=== PATIENT | female | born 1950 | race Caucasian/White ===

== ENCOUNTER → 2016-07-29 | Outpatient (CLI) | payer MEDICARE, BC ==
--- NOTE | 2016-07-30 10:01 | MM ---
Reason for exam: screening (asymptomatic). Last mammogram was performed 1 year and 7 months ago. History: Patient is postmenopausal and history of other cancer. Excisional biopsy of the right breast. Took estrogen. Physical Findings: A clinical breast exam by your physician is recommended on an annual basis and results should be correlated with mammographic findings. MG 3D Screening Mammo W/Cad Bilateral CC and MLO view(s) were taken. Prior study comparison: January 10, 2015, bilateral MG screening mammo w CAD. January 09, 2014, bilateral MG screening mammo w CAD. There are scattered fibroglandular densities. Finding: There are typically benign calcifications in the left breast. No significant changes in finding since January 10, 2015 and January 09, 2014. ASSESSMENT: Benign, BI-RAD 2 RECOMMENDATION: Routine screening mammogram of both breasts in 1 year.
== END | disposition home or self-care (01) ==
LOC: RADMAMWWP 07:34
PROVIDERS: ATTEND Internal Medicine
DX: Z12.31 Encounter for screening mammogram for malignant neoplasm of breast (principal)
CPT/HCPCS: 77063; G0202

== ENCOUNTER → 2016-09-09 | Outpatient (CLI) | payer MEDICARE, BC ==
[2016-09-09 08:09] LABS: Anisocytosis Slight; Basophils # (A) 0.1 k/uL (0-0.2); Basophils % (A) 1 %; CH 30.7; CHCM 32.5; Eosinophils # (A) 0.1 k/uL (0-0.7); Eosinophils % (A) 1 %; HCT 40.8 % (34.0-46.0); HDW 2.86; HGB 13.2 gm/dL (11.4-16.0); Luc # (Auto) 0.18; Luc % (Auto) 3; Lymphocytes # (A) 1.9 k/uL (1.0-4.8); Lymphocytes % (A) 27 %; MCH 30.7 pg (25.0-35.0); MCHC 32.4 g/dL (31.0-37.0); MCV 94.8 fL (80.0-100.0); Mean Platelet Volume 7.2; Monocytes # (A) 0.5 k/uL (0-1.0); Monocytes % (A) 7 %; Neutrophils # (A) 4.2 k/uL (1.3-7.7); Neutrophils % (A) 61 %; RBC 4.31 m/uL (3.80-5.40); RDW 16.1 % (11.5-15.5); WBC 6.9 k/uL (3.8-10.6); WBC (Perox) 7.14
[2016-09-09 08:13] LABS: Appearance,Urine Clear (Clear); Bacteria,Urine Rare /hpf; Bilirubin,Urine Negative (Negative); Glucose,Urine (UA) Negative (Negative); Ketones,Urine Negative (Negative); Leukocyte Esterase,Urine Trace (Negative); Mucus,Urine Occasional /hpf; Nitrite,Urine Negative (Negative); PH, Urine 5.5 (5.0-8.0); Particle Count 3117; Protein,Urine Negative (Negative); RBC,Urine 1 /hpf (0-5); Specific Gravity,Urine 1.009 (1.001-1.035); Squamous Epithelial Cell,Urine 1 /hpf (0-4); UA Billing (MACRO vs. MICRO) MICRO; Urobilinogen,Urine <2.0 mg/dL (<2.0); WBC,Urine 6 /hpf (0-5)
[2016-09-09 08:14] LABS: ALT 20 U/L (9-52); AST 21 U/L (14-36); Alkaline Phosphatase 82 U/L (38-126); Anion Gap 11 mmol/L; Blood Urea Nitrogen 11 mg/dL (7-17); Calcium 10.4 mg/dL (8.4-10.2); Carbon Dioxide 26 mmol/L (22-30); Chloride 108 mmol/L (98-107); Cholesterol 230 mg/dL (<200); Glucose 81 mg/dL (74-99); HDL Cholesterol 66 mg/dL (40-60); Non-African American GFR(MDRD) >60 (>60 ml/min/1.73 sqM); Potassium 4.3 mmol/L (3.5-5.1); Sodium 145 mmol/L (137-145); Total Bilirubin 0.5 mg/dL (0.2-1.3); Total Protein 6.8 g/dL (6.3-8.2); Triglycerides 184 mg/dL (<150)
== END | disposition home or self-care (01) ==
LOC: LABWHC1 07:19
PROVIDERS: ATTEND Internal Medicine
DX: M81.0 Age-related osteoporosis without current pathological fracture (principal); I65.23 Occlusion and stenosis of bilateral carotid arteries; E78.5 Hyperlipidemia, unspecified
CPT/HCPCS: 36415; 80053; 80061; 81001; 82306; 84443; 85025

== ENCOUNTER → 2016-10-14 | Outpatient (CLI) | payer MEDICARE, BC ==
[2016-10-14 08:00] LABS: Anisocytosis Slight; Basophils # (A) 0.1 k/uL (0-0.2); Basophils % (A) 1 %; CH 31.8; CHCM 32.2; Eosinophils # (A) 0.1 k/uL (0-0.7); Eosinophils % (A) 2 %; HCT 41.7 % (34.0-46.0); HDW 2.75; HGB 13.2 gm/dL (11.4-16.0); Luc # (Auto) 0.15; Luc % (Auto) 2; Lymphocytes # (A) 2.1 k/uL (1.0-4.8); Lymphocytes % (A) 30 %; MCH 31.3 pg (25.0-35.0); MCHC 31.6 g/dL (31.0-37.0); Macrocytosis Slight; Monocytes # (A) 0.4 k/uL (0-1.0); Monocytes % (A) 5 %; Neutrophils # (A) 4.1 k/uL (1.3-7.7); Neutrophils % (A) 59 %; RBC 4.22 m/uL (3.80-5.40); RDW 16.2 % (11.5-15.5); WBC 6.9 k/uL (3.8-10.6); WBC (Perox) 6.98
== END | disposition home or self-care (01) ==
LOC: LABWHC1 07:24
PROVIDERS: ATTEND Internal Medicine
DX: R19.5 Other fecal abnormalities (principal)
CPT/HCPCS: 36415; 85025

== ENCOUNTER → 2017-08-12 | Outpatient (CLI) | payer MEDICARE ==
[2017-08-12 07:57] LABS: Basophils # (A) 0.1 k/uL (0-0.2); Basophils % (A) 1 %; Eosinophils # (A) 0.1 k/uL (0-0.7); Eosinophils % (A) 2 %; HCT 44.6 % (34.0-46.0); Lymphocytes # (A) 1.7 k/uL (1.0-4.8); Lymphocytes % (A) 30 %; MCH 31.6 pg (25.0-35.0); MCHC 31.4 g/dL (31.0-37.0); MCV 100.6 fL (80.0-100.0); Macrocytosis Slight; Mean Platelet Volume 6.9; Monocytes # (A) 0.2 k/uL (0-1.0); Monocytes % (A) 4 %; Neutrophils # (A) 3.5 k/uL (1.3-7.7); Neutrophils % (A) 62 %; Platelet Count 285 k/uL (150-450); RBC 4.44 m/uL (3.80-5.40); WBC 5.7 k/uL (3.8-10.6)
[2017-08-12 08:12] LABS: Appearance,Urine Clear (Clear); Bacteria,Urine Rare /hpf; Bilirubin,Urine Negative (Negative); Blood,Urine Negative (Negative); Color,Urine Yellow; Glucose,Urine (UA) Negative (Negative); Ketones,Urine Negative (Negative); Leukocyte Esterase,Urine Moderate (Negative); Mucus,Urine Occasional /hpf; Nitrite,Urine Negative (Negative); Protein,Urine Negative (Negative); RBC,Urine 1 /hpf (0-5); Specific Gravity,Urine 1.015 (1.001-1.035); Squamous Epithelial Cell,Urine <1 /hpf (0-4); Urobilinogen,Urine <2.0 mg/dL (<2.0); WBC,Urine 9 /hpf (0-5)
[2017-08-12 08:19] LABS: ALT 27 U/L (9-52); AST 24 U/L (14-36); Albumin 3.6 g/dL (3.5-5.0); Alkaline Phosphatase 110 U/L (38-126); Anion Gap 8 mmol/L; Blood Urea Nitrogen 16 mg/dL (7-17); Calcium 10.1 mg/dL (8.4-10.2); Carbon Dioxide 28 mmol/L (22-30); Chloride 107 mmol/L (98-107); Cholesterol 280 mg/dL (<200); Glucose 93 mg/dL (74-99); HDL Cholesterol 54 mg/dL (40-60); LDL Cholesterol,Calculated 188 mg/dL (0-99); Potassium 4.5 mmol/L (3.5-5.1); Sodium 143 mmol/L (137-145); Total Bilirubin 0.5 mg/dL (0.2-1.3); Total Protein 6.2 g/dL (6.3-8.2); Triglycerides 190 mg/dL (<150)
--- NOTE | 2017-08-16 09:12 | MM ---
Reason for exam: screening (asymptomatic). Last mammogram was performed 1 year ago. History: Patient is postmenopausal and history of other cancer. Excisional biopsy of the right breast. Took estrogen. Physical Findings: A clinical breast exam by your physician is recommended on an annual basis and results should be correlated with mammographic findings. MG 3D Screening Mammo W/Cad Bilateral CC and MLO view(s) were taken. Prior study comparison: July 29, 2016, bilateral MG 3d screening mammo w/cad. January 10, 2015, bilateral MG screening mammo w CAD. The breast tissue is heterogeneously dense. This may lower the sensitivity of mammography. No significant changes when compared with prior studies. ASSESSMENT: Benign, BI-RAD 2 RECOMMENDATION: Routine screening mammogram of both breasts in 1 year.
== END | disposition home or self-care (01) ==
LOC: RADMAMWWP 07:46
PROVIDERS: ATTEND Internal Medicine
DX: Z12.31 Encounter for screening mammogram for malignant neoplasm of breast (principal); I10 Essential (primary) hypertension; E55.9 Vitamin D deficiency, unspecified
CPT/HCPCS: 72040; 72100; 77063; 77067; 80053; 80061; 81001; 82306; 85025

== ENCOUNTER → 2017-08-12 | Outpatient (CLI) | payer MEDICARE ==
--- NOTE | 2017-08-12 09:05 | XR ---
EXAMINATION TYPE: XR cervical spine limited DATE OF EXAM: 08/12/2017 COMPARISON: NONE HISTORY: Neck pain TECHNIQUE: 3 views are submitted. FINDINGS: There are no compression deformities. The prevertebral soft tissue structures are within normal limi ts. Postsurgical change with vascular stent in the right neck. There is degenerative disc disease in volving the mid and lower cervical spine with multilevel facet arthropathy. Odontoid view is nondiagn ostic. There is poor visualization the anterior margin the odontoid. IMPRESSION: 1. Multilevel degenerative disc disease. 2. There is poor definition of the odontoid anteriorly with suspected fusion of C2 and C3 posteriorly . Recommend MRI or CT scan for further analysis.
--- NOTE | 2017-08-12 09:11 | XR ---
EXAM TYPE: LUMBAR SPINE X RAY SERIES COMPARISON: NONE HISTORY: Back pain TECHNIQUE: 4 views are submitted. FINDINGS: Alignment is anatomic. The pedicles are intact. The transverse processes are intact. There is no s pondylolysis or spondylolisthesis. Postsurgical change in the right upper quadrant. Calcifications i n the right upper quadrant could be related to gallbladder or liver. Hypertrophic changes at all levels with degenerative disc disease at all levels and most marked findi ngs at levels L3-S1 with multilevel facet arthropathy. Diffuse osteopenia noted. IMPRESSION: 1. Multilevel degenerative disc disease and facet arthropathy. Correlate with MRI as clinically warra nted.
== END | disposition home or self-care (01) ==
LOC: RADXRMAIN 06:56
PROVIDERS: ATTEND Chiropractor
DX: M50.320 Other cervical disc degeneration, mid-cervical region, unspecified level (principal); M51.37 Other intervertebral disc degeneration, lumbosacral region; M46.97 Unspecified inflammatory spondylopathy, lumbosacral region; I10 Essential (primary) hypertension; E55.9 Vitamin D deficiency, unspecified; Z98.890 Other specified postprocedural states
CPT/HCPCS: 72040; 72100

== ENCOUNTER → 2017-11-22 | Outpatient (CLI) | payer MEDICARE ==
--- NOTE | 2017-11-22 21:29 | MR ---
EXAMINATION TYPE: MR cervical spine wo con DATE OF EXAM: 11/22/2017 COMPARISON: Plain film 08/12/2017 HISTORY: Neck pain TECHNIQUE: Multiplanar, multisequence images of the cervical spine were acquired. There is multilevel lateral extension of endplate disc complex causing foraminal stenosis. Multilevel extension endplate disc complex is present causing minimal anterior mass effect on the thecal sac. N o significant spinal stenosis. Cervical segments are intact. There is normal alignment. Cervical spinal cord is of normal signal. Craniovertebral junction relationships are within normal limits. There is multilevel spondylosis wi th endplate discogenic marrow signal change, loss of disc height signal at the intervertebral levels compatible with disc desiccation and degenerative disc disease. Segmentation anomaly present at C2-3. IMPRESSION: Degenerative disc disease, congenital anomaly, multilevel foraminal encroachment. Correlate with plai n film prior to any intervention.
== END | disposition home or self-care (01) ==
LOC: RADMRIMAIN 05:57
PROVIDERS: ATTEND Orthopaedic Surgery Hand Surgery
DX: M50.30 Other cervical disc degeneration, unspecified cervical region (principal); Q76.49 Other congenital malformations of spine, not associated with scoliosis; M19.031 Primary osteoarthritis, right wrist
CPT/HCPCS: 72141

== ENCOUNTER → 2018-02-28 | Outpatient (CLI) | payer MEDICARE ==
--- NOTE | 2018-02-28 12:50 | CT ---
EXAMINATION TYPE: CT chest wo con DATE OF EXAM: 02/28/2018 COMPARISON: None HISTORY: Cough, COPD, ILD, Cancer. CT DLP: 217 mGycm, Automated exposure control for dose reduction was used. CONTRAST: None TECHNIQUE: Axial images were obtained at 1 mm thick sections at 10 mm intervals. This will limit po rtions of the examination which may not be visualized within the [id number]. Images were obtained in the prone and supine views. FINDINGS: There is limited evaluation of the thyroid. There is a small amount of atelectasis within the right middle lobe and lingula position right middle lobe and lingular infiltrates. Persistent on the supine views and somewhat more spiculated. Standard CT chest with contrast is recommended for add itional evaluation. Neoplasm is not excluded. Atelectasis could be considered. Some pneumonitis changes within the posterior left lung base stable between prone and supine views. F ollow-up is recommended. No enlarged mediastinal or hilar adenopathy is evident. There is some shotty mediastinal lymph node s. The ascending aorta diameter at the level of the main pulmonary artery is 3.1 cm. The main pulmon ruperto artery diameter at the bifurcation is 2.5 cm. Coronary artery calcification is present. Limited CT sections are obtained through the upper abdomen. Abdomen is essentially unremarkable. IMPRESSIONS: 1. Infiltrates within the right middle lobe and lingula which change but do not resolve between prone and supine views. Closer evaluation contrast CT is recommended. 2. Persistent area of pneumonitis within the left lower lobe. Follow-up to clearing is recommended.
== END | disposition home or self-care (01) ==
LOC: RADCTMAIN 07:51
PROVIDERS: ATTEND Internal Medicine
DX: J18.9 Pneumonia, unspecified organism (principal); R91.8 Other nonspecific abnormal finding of lung field; Z88.0 Allergy status to penicillin; Z88.2 Allergy status to sulfonamides; Z91.09 Other allergy status, other than to drugs and biological substances
CPT/HCPCS: 71250

== ENCOUNTER → 2018-06-05 | Outpatient (CLI) | payer MEDICARE ==
--- NOTE | 2018-06-05 18:04 | XR ---
EXAMINATION TYPE: XR ribs RT DATE OF EXAM: 06/05/2018 COMPARISON: NONE HISTORY: Right-sided rib pain after coughing TECHNIQUE: 4 views FINDINGS: There is no evidence of a rib fracture. I see no pleural effusion or pneumothorax. Right flaquito ng is clear of consolidation. IMPRESSION: Negative right rib exam.
== END | disposition home or self-care (01) ==
LOC: RADXRMAIN 16:33
PROVIDERS: ATTEND Internal Medicine
DX: R07.81 Pleurodynia (principal)

== ENCOUNTER → 2018-07-21 | Outpatient (CLI) | payer MEDICARE ==
--- NOTE | 2018-07-22 14:36 | ECHOF ---
Referral Reason:J91.8Bilateraleffusion,I50.9 CHF,R06.01 orthopenia MEASUREMENTS -------- HEIGHT: 162.6 cm WEIGHT: 82.1 kg BP: IVSd: 1.3 cm (0.6 - 1.1) LVIDd: 3.7 cm (3.9 - 5.3) LVPWd: 1.3 cm (0.6 - 1.1) IVSs: 1.4 cm LVIDs: 3.5 cm LVPWs: 1.4 cm LA Diam: 4.2 cm (2.7 - 3.8) LAESV Index (A-L): 25.39 ml/m MV EXCURSION: 14.013 mm (> 18.000) MV EF SLOPE: 62 mm/s (70 - 150) EPSS: 1.0 cm MV E Filemon: 1.09 m/s MV DecT: 237 ms MV A Filemon: 1.24 m/s MV E/A Ratio: 0.88 RAP: 5.00 mmHg RVSP: 17.61 mmHg FINDINGS -------- Sinus rhythm. This was a technically adequate study. The left ventricular size is normal. There is mild concentric left ventricular hypertrophy. Overa ll left ventricular systolic function is normal with, an EF between 55 - 60 %. The right ventricle is normal in size. There is mild aortic valve sclerosis. There is no evidence of aortic regurgitation. Moderate mitral annular calcification present. Mild mitral regurgitation is present. The peak an d mean MV gradients are 12.14mmHg 4.15mmHg as measured by doppler. Possible Vegetation on MV Leafle ts,Though it seems to be cosistent with thckened and calcified mitral annulus ans chordae.Clinical co rrelation suggested. Mild tricuspid regurgitation present. There is no evidence of pulmonary hypertension. The right v entricular systolic pressure, as measured by Doppler, is 17.61mmHg. There is no pulmonic regurgitation present. The aortic root size is normal. There is no pericardial effusion. CONCLUSIONS -------- 1. The left ventricular size is normal. 2. There is mild concentric left ventricular hypertrophy. 3. Overall left ventricular systolic function is normal with, an EF between 55 - 60 %. 4. The right ventricle is normal in size. 5. There is mild aortic valve sclerosis. 6. Mild mitral regurgitation is present. 7. The peak and mean MV gradients are 12.14mmHg 4.15mmHg as measured by doppler. 8. Possible Vegetation on MV Leaflets,Though it seems to be cosistent with thckened and calcified daisy ral annulus ans chordae.Clinical correlation suggested. 9. Mild tricuspid regurgitation present. 10. There is no evidence of pulmonary hypertension. 11. The right ventricular systolic pressure, as measured by Doppler, is 17.61mmHg. 12. There is no pulmonic regurgitation present. 13. The aortic root size is normal. 14. There is no pericardial effusion. GARMENT PARTS CUTTER MACHINE: Narda Rose RDCS
== END | disposition home or self-care (01) ==
LOC: RADECHMAIN 15:32
PROVIDERS: ATTEND Internal Medicine
DX: I08.3 Combined rheumatic disorders of mitral, aortic and tricuspid valves (principal); Z88.0 Allergy status to penicillin; Z88.2 Allergy status to sulfonamides; Z91.048 Other nonmedicinal substance allergy status
CPT/HCPCS: 93306

== ENCOUNTER → 2018-08-14 | Outpatient (CLI) | payer MEDICARE ==
[2018-08-14 22:01] LABS: Albumin/Globulin Ratio 1.82 (1.60-3.17); Anion Gap 7.2 mmol/L (4.00-12.00); Calcium 9.6 mg/dL (8.7-10.3); Carbon Dioxide 26.8 mmol/L (21.6-31.8); Globulin 2.2 g/dL (1.6-3.3); Potassium 4.3 mmol/L (3.5-5.5); Total Bilirubin 0.2 mg/dL (0.2-1.2); Total Protein 6.2 g/dL (6.2-8.2)
== END | disposition home or self-care (01) ==
LOC: LABWHC1 14:17
PROVIDERS: ATTEND Internal Medicine
DX: I50.30 Unspecified diastolic (congestive) heart failure (principal)
CPT/HCPCS: 36415; 80053; 83880

== ENCOUNTER → 2018-08-21 | Outpatient (CLI) | payer MEDICARE ==
--- NOTE | 2018-08-22 13:18 | MM ---
Reason for exam: screening (asymptomatic). Last mammogram was performed 1 year ago. History: Patient is postmenopausal and history of other cancer. Excisional biopsy of the right breast. Took estrogen. Physical Findings: A clinical breast exam by your physician is recommended on an annual basis and results should be correlated with mammographic findings. MG 3D Screening Mammo W/Cad Bilateral CC and MLO view(s) were taken. Prior study comparison: August 12, 2017, bilateral MG 3d screening mammo w/cad. July 29, 2016, bilateral MG 3d screening mammo w/cad. The breast tissue is heterogeneously dense. This may lower the sensitivity of mammography. Benign appearing bilateral calcifications. No suspicious abnormality. No significant changes when compared with prior studies. ASSESSMENT: Benign, BI-RAD 2 RECOMMENDATION: Routine screening mammogram of both breasts in 1 year.
== END ==
LOC: RADMAMWWP 06:51
PROVIDERS: ATTEND Internal Medicine
DX: Z12.31 Encounter for screening mammogram for malignant neoplasm of breast (principal)
CPT/HCPCS: 77063; 77067

== ENCOUNTER → 2018-11-13 | Outpatient (CLI) | payer MEDICARE ==
[2018-11-13 09:54] LABS: Potassium 4.3 mmol/L (3.5-5.1)
== END | disposition home or self-care (01) ==
LOC: LABPAT 08:12
PROVIDERS: ATTEND Internal Medicine Interventional Cardiology
DX: Z01.812 Encounter for preprocedural laboratory examination (principal); R06.02 Shortness of breath; R94.39 Abnormal result of other cardiovascular function study
CPT/HCPCS: 36415; 80051; 82565; 82947; 84520

== ENCOUNTER → 2018-11-13 | Outpatient (CLI) | payer MEDICARE ==
[2018-11-13 09:51] LABS: Basophils # (A) 0.1 k/uL (0-0.2); Basophils % (A) 1 %; Eosinophils # (A) 0.1 k/uL (0-0.7); Eosinophils % (A) 2 %; HCT 40.3 % (34.0-46.0); Lymphocytes % (A) 32 %; MCH 29.4 pg (25.0-35.0); MCHC 32.2 g/dL (31.0-37.0); MCV 91.4 fL (80.0-100.0); Mean Platelet Volume 7.2; Monocytes # (A) 0.4 k/uL (0-1.0); Monocytes % (A) 7 %; Neutrophils # (A) 3.5 k/uL (1.3-7.7); Neutrophils % (A) 56 %; Platelet Count 277 k/uL (150-450); RBC 4.41 m/uL (3.80-5.40); RDW 15.6 % (11.5-15.5); WBC 6.2 k/uL (3.8-10.6)
[2018-11-13 16:25] LABS: Albumin 4.1 g/dL (3.80-4.90); C Reactive Protein 0.9 mg/dL (0.0-0.8); Calcium 9.6 mg/dL (8.7-10.3)
== END | disposition home or self-care (01) ==
LOC: LABWHC1 08:16
PROVIDERS: ATTEND Internal Medicine Rheumatology
DX: M06.4 Inflammatory polyarthropathy (principal); Z79.899 Other long term (current) drug therapy
CPT/HCPCS: 36415; 82040; 82310; 84450; 84460; 85025; 85652; 86140; 86480

== ENCOUNTER 2018-11-23 06:18 | Day surgery (SDC) | payer MEDICARE ==
[2018-11-20 14:40] VITALS: BMI 30.9
[2018-11-23] MEDS ORDERED: ALPRAZolam 0.25 MG TAB PO PRN (06:42)
[2018-11-23] MEDS ORDERED: ALPRAZolam 0.5 MG TAB PO PRN (06:42)
[2018-11-23] MEDS ORDERED: SODIUM CHLORIDE 0.9% 1,000 ML in EMPTY BAG 1 BAG IV ONE (06:42)
[2018-11-23] MEDS ORDERED: NITROGLYCERIN SL TABS 0.4 MG TAB SUBLINGUAL PRN (06:42)
[2018-11-23] MEDS ORDERED: ASPIRIN 325 MG TAB PO STA (06:42)
[2018-11-23] MEDS ORDERED: ATORVASTATIN 80 MG TAB PO STA (06:42)
[2018-11-23] MEDS ORDERED: SODIUM CHLORIDE 0.9% 1,000 ML IV ONE (07:15)
[2018-11-23 07:17] VITALS: PULSE 82; TEMP 98.4
[2018-11-23] MEDS ORDERED: VERAPAMIL 2.5 MG/ML 2 ML AMP ONE (07:18)
[2018-11-23] MEDS ORDERED: HEPARIN SODIUM 1,000 UN/ML (10ML VL) ONE (07:18)
[2018-11-23] MEDS ORDERED: LIDOCAINE 1% INJ 10MG/ML (20 ML MDV) ONE (07:18)
[2018-11-23] MEDS ORDERED: MIDAZOLAM (PF) 2 MG/2 ML VIAL IVP ONE (07:59)
[2018-11-23] MEDS ORDERED: LIDOCAINE 1% INJ 10MG/ML (20 ML MDV) SQ ONE (08:03)
[2018-11-23] MEDS: VERAPAMIL SYRINGE (5 MG/10 ML) INTRAARTER ONE ×2 (08:04→08:15)
[2018-11-23] MEDS ORDERED: HEPARIN SODIUM 1,000 UN/ML (10ML VL) IV ONE (08:05)
[2018-11-23] MEDS ORDERED: MIDAZOLAM (PF) 2 MG/2 ML VIAL IV ONE (08:06)
[2018-11-23] MEDS ORDERED: IOPAMIDOL-370 100ML BTL INJ ONE (08:13)
[2018-11-23] MEDS ORDERED: RX INFO: IV CONTRAST WAS GIVEN 1 EACH MISC MISCELLANE PRN (08:22)
[2018-11-23] MEDS ORDERED: SODIUM CHLORIDE 0.9% 1,000 ML IV SCH (08:30)
--- NOTE | 2018-11-23 11:39 | CC ---
CARDIAC CATHETERIZATION REPORT DATE OF SERVICE: November 23, 2018 PERFORMING PHYSICIAN: Armand Narayan MD, hat cutter. PROCEDURE PERFORMED: 1. Selective right and left coronary angiogram. 2. Left heart catheterization. INDICATION: This is a 68-year-old female patient with history of carotid disease as well as hypertension and dyslipidemia who was experiencing shortness of breath with exertion. She underwent a myocardial perfusion imaging stress test and that revealed an inferior ischemia. Because of that, a heart catheterization was advised. APPROACH: Right radial artery. COMPLICATION: None. LEVEL OF SEDATION: Moderate with sedation length of 16 minutes. PROCEDURE DESCRIPTION: After obtaining an informed consent, the patient was brought to the cardiac slabber light. The right radial artery was cannulated using micropuncture technique and a micropuncture wire passed easily then I placed a 6-Czech sheath in the right radial artery and subsequently I gave the patient 2 mg of verapamil IA and 10,000 units of heparin IV. After that, I did selective right and left coronary angiogram using JR4 and JL3.5 catheters. Left heart catheterization was performed using the JR4 catheter which flipped into the LV then I did pullback across aortic valve. The procedure was completed without any complication. SELECTIVE CORONARY ANGIOGRAM: 1. The right coronary artery is a large caliber vessel. It is a dominant vessel. right has a lesion appeared to be in the range of 90% to 95%. 2. The left main is angiographically normal. It bifurcates into left circumflex and left anterior descending artery. 3. The left circumflex is a large caliber vessel. It is a nondominant vessel. The proximal circumflex has mild disease only and gives rise into a large OM branch which bifurcates into 2 separate branches. Both appeared to be angiographically normal and the circumflex continued after that as a small-caliber vessel in the AV groove. 4. The LAD: The proximal LAD has mild disease only. The mid LAD appeared to be angiographically normal and the LAD distally appeared to be angiographically normal. The LAD gives rise into one diagonal branch in the midportion which is a small caliber vessel. HEMODYNAMICS: The left ventricular end-diastolic pressure was about 12 mmHg without gradient across the aortic valve. CONCLUSION: 1. Critical disease involving the ostial right coronary artery. 2. Mild nonobstructive disease involving the left coronary system. 3. Normal left ventricular end-diastolic pressure. POSTPROCEDURE MANAGEMENT: 1. Giving the patient history of NICKEL allergy, I am going to treat the patient medically at this point. 2. I will follow up with the patient in the office in a week. MMPAM / CHEN: [id number] /
--- NOTE | 2018-11-23 11:54 | LTR ---
DATE OF SERVICE: November 23, [address] Brown: Ms. Winsome Fonseca underwent today a heart catheterization and that revealed critical disease involving the ostial of the right coronary artery. As you know, she does have a NICKEL ALLERGY. Because of that, I am going to treat the patient medically at this point. I want to thank you for allowing us to participate in her care and please do not hesitate to call if you have any questions or concerns. Sincerely, GENOVEVA / CHEN: [id number] /
[2018-11-23 12:13] VITALS: RESP 20
[2018-11-23 13:12] VITALS: BP 128/62
== END 2018-11-23 13:00 | disposition home or self-care (01) ==
LOC: CATHCVL 06:18
PROVIDERS: ATTEND Internal Medicine Interventional Cardiology
DX: I25.110 Atherosclerotic heart disease of native coronary artery with unstable angina pectoris (principal); I10 Essential (primary) hypertension; Z72.0 Tobacco use; I65.23 Occlusion and stenosis of bilateral carotid arteries; E78.5 Hyperlipidemia, unspecified; J44.9 Chronic obstructive pulmonary disease, unspecified; M06.9 Rheumatoid arthritis, unspecified; Z79.82 Long term (current) use of aspirin; Z79.52 Long term (current) use of systemic steroids; Z79.899 Other long term (current) drug therapy; Z88.0 Allergy status to penicillin; Z88.2 Allergy status to sulfonamides
CPT/HCPCS: 93458; J2001; J1644; Q9967; J2250

== ENCOUNTER 2018-12-04 09:09 | Day surgery (SDC) | payer MEDICARE ==
[~2018-12-04 09:09] MED LIST: ALPRAZolam 0.25 MG TAB PO PRN; ALPRAZolam 0.5 MG TAB PO PRN; ASPIRIN 325 MG TAB PO STA; ATORVASTATIN 80 MG TAB PO STA; NITROGLYCERIN SL TABS 0.4 MG TAB SUBLINGUAL PRN; SODIUM CHLORIDE 0.9% 1,000 ML in EMPTY BAG 1 BAG IV ONE
[2018-12-04 10:15] LABS: Basophils % (A) 0 %; Eosinophils # (A) 0.1 k/uL (0-0.7); Eosinophils % (A) 1 %; HCT 42.6 % (34.0-46.0); HGB 13.6 gm/dL (11.4-16.0); Lymphocytes # (A) 1.6 k/uL (1.0-4.8); Lymphocytes % (A) 17 %; MCH 29.1 pg (25.0-35.0); MCV 90.9 fL (80.0-100.0); Mean Platelet Volume 7.1; Monocytes # (A) 0.5 k/uL (0-1.0); Monocytes % (A) 6 %; Neutrophils # (A) 6.8 k/uL (1.3-7.7); Neutrophils % (A) 75 %; Platelet Count 231 k/uL (150-450); RBC 4.68 m/uL (3.80-5.40); RDW 15.5 % (11.5-15.5); WBC 9.2 k/uL (3.8-10.6)
[2018-12-04 10:27] LABS: Calcium 10.2 mg/dL (8.4-10.2); Potassium 4.3 mmol/L (3.5-5.1)
[2018-12-04] MEDS ORDERED: LIDOCAINE 1% INJ 10MG/ML (20 ML MDV) ONE ×2 (11:00→12:42)
[2018-12-04] MEDS ORDERED: HYDROmorphone 1 MG/ML 1 ML SYRINGE ONE (13:13)
[2018-12-04] MEDS ORDERED: MIDAZOLAM (PF) 2 MG/2 ML VIAL IV ONE ×2 (13:15→13:21)
[2018-12-04] MEDS ORDERED: LIDOCAINE 1% INJ 10MG/ML (10 ML MDV) SQ ONE (13:16)
[2018-12-04] MEDS ORDERED: BIVALIRUDIN BOLUS 250 MG/50 ML IV ONE (13:18)
[2018-12-04] MEDS ORDERED: ENALAPRILAT 1.25 MG/ML 1 ML VIAL IV ONE (13:19)
[2018-12-04] MEDS ORDERED: BIVALIRUDIN 250 MG in SODIUM CHLORIDE 0.9% 50 ML IV ONE (13:20)
[2018-12-04] MEDS ORDERED: HYDROmorphone 1 MG/ML 1 ML SYRINGE IVP ONE (13:20)
[2018-12-04] MEDS ORDERED: NITROGLYCERIN 1000MCG/10ML SYRINGE INTRACORON ONE (13:21)
[2018-12-04] MEDS ORDERED: hydrALAZINE HCL 20 MG/ML 1 ML VIAL ONE (13:36)
[2018-12-04] MEDS ORDERED: ENALAPRILAT 1.25 MG/ML 1 ML VIAL ONE (13:36)
[2018-12-04] MEDS ORDERED: hydrALAZINE HCL 20 MG/ML 1 ML VIAL IV ONE (13:39)
[2018-12-04] MEDS ORDERED: CLOPIDOGREL 75 MG TAB ONE (13:49)
[2018-12-04] MEDS ORDERED: IOPAMIDOL-370 125ML BTL INJ ONE (13:55)
[2018-12-04] MEDS ORDERED: CLOPIDOGREL 75 MG TAB PO ONE (13:56)
[2018-12-04] MEDS ORDERED: RX INFO: IV CONTRAST WAS GIVEN 1 EACH MISC MISCELLANE PRN (15:47)
[2018-12-04] MEDS ORDERED: MAG HYDROX/AL HYDROX/SIMETH 30 ML CUP PO PRN (15:47)
[2018-12-04] MEDS ORDERED: ATROPINE SULFATE 0.1 MG/ML 10ML SYRINGE IV PRN (15:47)
--- NOTE | 2018-12-04 19:03 | PTCA ---
PERCUTANEOUSTRANS CORORONARY ANGIOGRAPHY DATE OF SERVICE: December 04, 2018 PERFORMING PHYSICIAN: Armand Narayan MD, membership director. PROCEDURE PERFORMED: 1. An atherectomy of the right coronary artery. 2. Successful stenting of the RCA using 3.5 x 15 mm Xience ARTIS, which was postdilated using 3.75 mm NC balloon with an excellent angiographic results. 3. Placement of temporary pacemaker. INDICATIONS: This is a pleasant 68-year-old female patient who was experiencing shortness of breath with exertion and underwent a heart catheterization and that revealed critical disease involving the ostial RCA. The ostial RCA was calcified. She was brought today to undergo a PCI of the RCA. APPROACH: Right common femoral artery. COMPLICATION: None. LEVEL OF SEDATION: Moderate. Sedation length of 34 minutes. PROCEDURE DESCRIPTION: After obtaining an informed consent, the patient was brought to cardiac labor conciliator. The right common femoral vein and right common femoral artery were cannulated using micropuncture technique and a micropuncture wire passed. Wire passed easily. Then I placed 2 6-Syriac in the vein and the artery as well. After that I placed a transvenous temporary pacemaker under fluoroscopy guidance. After that, I did start anticoagulation with Angiomax. The RCA was engaged using JL4 guide with a side hole. After that, I did wire using a Whisper wire and then I did change my Whisper into a ViperWire preparing for atherectomy. I did atherectomy under low speed only. After that I did balloon angioplasty using 3.5 mm balloon before I deployed a 3.5 x 15 mm Xience ARTIS, which was inflated under 18 atmospheres for 20 seconds. I post dilated using 375 mm NC balloon. The final angiogram showed excellent results and the procedure was completed without any complication. POSTPROCEDURE MANAGEMENT: 1. Dual anti-platelet therapy. 2. Risk factor modifications. 3. Follow up with the patient. MMODL / IJN: [id number] /
[2018-12-04 19:46] VITALS: RESP 18; BMI 30.8
[2018-12-04] MEDS: SODIUM CHLORIDE 0.9% 1,000 ML IV SCH (20:01)
[2018-12-04] MEDS: HYDROXYCHLOROQUINE SULFATE 200 MG TAB PO SCH (21:02)
[2018-12-04] MEDS: METOPROLOL TARTRATE 25 MG TAB PO SCH (21:02)
[2018-12-05] MEDS: SODIUM CHLORIDE 0.9% 1,000 ML IV SCH (04:01)
[2018-12-05 06:43] LABS: Basophils # (A) 0.1 k/uL (0-0.2); Basophils % (A) 1 %; Eosinophils % (A) 1 %; HCT 39.3 % (34.0-46.0); HGB 12.5 gm/dL (11.4-16.0); Lymphocytes # (A) 1.7 k/uL (1.0-4.8); Lymphocytes % (A) 26 %; MCH 29.1 pg (25.0-35.0); MCHC 31.8 g/dL (31.0-37.0); MCV 91.4 fL (80.0-100.0); Mean Platelet Volume 7.3; Monocytes # (A) 0.5 k/uL (0-1.0); Monocytes % (A) 8 %; Neutrophils # (A) 4.1 k/uL (1.3-7.7); Neutrophils % (A) 63 %; Platelet Count 200 k/uL (150-450); RDW 15.6 % (11.5-15.5); WBC 6.5 k/uL (3.8-10.6)
[2018-12-05 06:58] LABS: Calcium 9.7 mg/dL (8.4-10.2); Potassium 4.1 mmol/L (3.5-5.1)
[2018-12-05] MEDS: HYDROXYCHLOROQUINE SULFATE 200 MG TAB PO SCH (07:50)
[2018-12-05] MEDS: METOPROLOL TARTRATE 25 MG TAB PO SCH (07:51)
[2018-12-05] MEDS: ATORVASTATIN 10 MG TAB PO SCH ×2 (07:51→07:54)
[2018-12-05] MEDS ORDERED: CLOPIDOGREL 75 MG TAB PO SCH (09:00)
[2018-12-05] MEDS ORDERED: LOSARTAN 25 MG TAB PO SCH (09:00)
[2018-12-05] MEDS ORDERED: FUROSEMIDE 20 MG TAB PO SCH (09:00)
[2018-12-05] MEDS ORDERED: POTASSIUM CHLORIDE ER 20 MEQ TAB.ER PO SCH (09:00)
[2018-12-05] MEDS ORDERED: predniSONE 2.5 MG TAB PO SCH (09:00)
[2018-12-05] MEDS ORDERED: FOLIC ACID 1 MG TAB PO SCH (09:00)
[2018-12-05] MEDS ORDERED: ASPIRIN 325 MG TAB PO SCH (09:00)
[2018-12-05] MEDS ORDERED: CHOLECALCIFEROL 1,000 UNIT TAB PO SCH (09:00)
[2018-12-05 09:28] VITALS: BP 115/54; PULSE 83; TEMP 98
--- NOTE | 2018-12-05 10:50 | DS ---
DISCHARGE SUMMARY DATE OF ADMISSION: 12/04/2018 DATE OF DISCHARGE: 12/05/2018 BRIEF HISTORY: This is a pleasant 68-year-old female patient who was admitted to the hospital yesterday and underwent successful atherectomy along with balloon angioplasty and stenting of the ostial right coronary artery with a right groin approach. On follow up with her today, she seems to be asymptomatic and doing well. The right groin is soft and nontender and without any bruises. The patient is going to be discharged home on dual anti-platelet therapy and I will follow up with the patient next week in the office. GENOVEVA / CAREN: [id number] /
[2018-12-10] MEDS ORDERED: METHOTREXATE SODIUM 2.5 MG TAB PO SCH (09:00)
== END 2018-12-05 10:01 | disposition home or self-care (01) ==
LOC: CATHCVL 09:09 → 3SCARD 14:39 → CATHCVL 12-05 10:01
PROVIDERS: ATTEND Internal Medicine Interventional Cardiology
DX: I25.10 Atherosclerotic heart disease of native coronary artery without angina pectoris (principal); I25.84 Coronary atherosclerosis due to calcified coronary lesion; I10 Essential (primary) hypertension; E78.5 Hyperlipidemia, unspecified; Z72.0 Tobacco use; I65.23 Occlusion and stenosis of bilateral carotid arteries; J44.9 Chronic obstructive pulmonary disease, unspecified; M06.9 Rheumatoid arthritis, unspecified; Z79.82 Long term (current) use of aspirin; Z79.899 Other long term (current) drug therapy; Z88.0 Allergy status to penicillin; Z88.2 Allergy status to sulfonamides
CPT/HCPCS: 94760; 80048 ×2; 85025 ×2; C9602; C1769 ×6; C1887; C1725 ×2; C1894; C1714; C1874; J0360; J1170; J0583; J2001; J7512; Q9967; J2250

== ENCOUNTER → 2019-02-03 | Outpatient (CLI) | payer MEDICARE ==
[2019-02-03 08:56] LABS: Anisocytosis Slight; Basophils % (A) 1 %; Eosinophils # (A) 0.1 k/uL (0-0.7); Eosinophils % (A) 2 %; HCT 39.8 % (34.0-46.0); HGB 12.8 gm/dL (11.4-16.0); Lymphocytes # (A) 1.9 k/uL (1.0-4.8); Lymphocytes % (A) 35 %; MCH 31.2 pg (25.0-35.0); MCHC 32.2 g/dL (31.0-37.0); Macrocytosis Slight; Mean Platelet Volume 7.3; Monocytes # (A) 0.4 k/uL (0-1.0); Monocytes % (A) 7 %; Neutrophils % (A) 53 %; Platelet Count 230 k/uL (150-450); RDW 18.1 % (11.5-15.5); WBC 5.6 k/uL (3.8-10.6)
[2019-02-03 08:57] LABS: MCV 97.1 fL (80.0-100.0)
[2019-02-03 10:45] LABS: Erythrocyte Sedimentation Rate 14 mm/hr (0-20)
[2019-02-03 17:00] LABS: African American GFR (CKD) 75.1 (60.0-200.0); Albumin 3.9 g/dL (3.80-4.90); Anion Gap 7.9 mmol/L (4.00-12.00); C Reactive Protein 0.6 mg/dL (0.0-0.8); Calcium 9.5 mg/dL (8.7-10.3); Carbon Dioxide 27.1 mmol/L (21.6-31.8); Potassium 4.2 mmol/L (3.5-5.5)
== END ==
LOC: LABWHC1 08:08
PROVIDERS: ATTEND Internal Medicine Rheumatology
DX: M06.4 Inflammatory polyarthropathy (principal); Z79.899 Other long term (current) drug therapy
CPT/HCPCS: 36415; 80051; 82040; 82310; 82565; 84450; 84460; 84520; 85025; 85652; 86140

== ENCOUNTER → 2019-04-05 | Outpatient (CLI) | payer MEDICARE ==
[2019-04-05 08:56] LABS: Basophils # (A) 0.1 k/uL (0-0.2); Basophils % (A) 1 %; Eosinophils # (A) 0.1 k/uL (0-0.7); Eosinophils % (A) 2 %; HCT 41.9 % (34.0-46.0); HGB 13.7 gm/dL (11.4-16.0); Lymphocytes # (A) 2.3 k/uL (1.0-4.8); Lymphocytes % (A) 34 %; MCH 32.4 pg (25.0-35.0); MCHC 32.7 g/dL (31.0-37.0); Macrocytosis Slight; Mean Platelet Volume 6.7; Monocytes # (A) 0.3 k/uL (0-1.0); Monocytes % (A) 5 %; Neutrophils # (A) 3.6 k/uL (1.3-7.7); Neutrophils % (A) 56 %; Platelet Count 291 k/uL (150-450); RBC 4.23 m/uL (3.80-5.40); RDW 15.6 % (11.5-15.5); WBC 6.5 k/uL (3.8-10.6)
[2019-04-05 10:22] LABS: Erythrocyte Sedimentation Rate 8 mm/hr (0-20)
[2019-04-05 21:10] LABS: ALT 16 U/L (8-44); AST 17 U/L (13-35); African American GFR (CKD) 66.1 (60.0-200.0); C Reactive Protein <0.4 mg/dL (0.0-0.8); Calcium 9.8 mg/dL (8.7-10.3); Carbon Dioxide 24.7 mmol/L (21.6-31.8); Chloride 105 mmol/L (96-109); Potassium 4.8 mmol/L (3.5-5.5); Sodium 140 mmol/L (135-145)
== END | disposition home or self-care (01) ==
LOC: LABWHC1 07:54
PROVIDERS: ATTEND Internal Medicine Rheumatology
DX: M25.50 Pain in unspecified joint (principal); M06.4 Inflammatory polyarthropathy; Z79.899 Other long term (current) drug therapy
CPT/HCPCS: 36415; 80051; 82040; 82310; 82565; 84450; 84460; 84520; 85025; 85652; 86140

== ENCOUNTER → 2019-07-13 | Outpatient (CLI) | payer MEDICARE ==
[2019-07-13 08:37] LABS: Basophils % (A) 1 %; Eosinophils # (A) 0.1 k/uL (0-0.7); Eosinophils % (A) 2 %; HCT 40.2 % (34.0-46.0); HGB 13.1 gm/dL (11.4-16.0); Lymphocytes % (A) 34 %; MCH 31.6 pg (25.0-35.0); MCHC 32.5 g/dL (31.0-37.0); MCV 97.2 fL (80.0-100.0); Mean Platelet Volume 7.7; Monocytes # (A) 0.3 k/uL (0-1.0); Monocytes % (A) 6 %; Neutrophils # (A) 3.1 k/uL (1.3-7.7); Neutrophils % (A) 55 %; Platelet Count 267 k/uL (150-450); RBC 4.14 m/uL (3.80-5.40); WBC 5.7 k/uL (3.8-10.6)
[2019-07-13 11:50] LABS: Erythrocyte Sedimentation Rate 25 mm/hr (0-20)
[2019-07-13 18:30] LABS: Calcium 9.9 mg/dL (8.7-10.3)
[2019-07-13 18:31] LABS: African American GFR (CKD) 66.1 (60.0-200.0); Albumin 4.2 g/dL (3.80-4.90); C Reactive Protein 2.5 mg/dL (0.0-0.8); Potassium 4.4 mmol/L (3.5-5.5)
== END | disposition home or self-care (01) ==
LOC: LABWHC1 07:38
PROVIDERS: ATTEND Internal Medicine Rheumatology
DX: M25.50 Pain in unspecified joint (principal)
CPT/HCPCS: 36415; 80051; 82040; 82310; 82565; 84450; 84460; 84520; 85025; 85652; 86140

== ENCOUNTER → 2019-12-21 | Outpatient (CLI) | payer MEDICARE ==
[2019-12-21 11:34] LABS: Appearance,Urine Clear (Clear); Bilirubin,Urine Negative (Negative); Blood,Urine Negative (Negative); Color,Urine Yellow; Glucose,Urine (UA) Negative (Negative); Ketones,Urine Negative (Negative); Leukocyte Esterase,Urine Trace (Negative); Mucus,Urine Occasional /hpf; Nitrite,Urine Negative (Negative); PH, Urine 5.5 (5.0-8.0); Protein,Urine Trace (Negative); RBC,Urine <1 /hpf (0-5); Specific Gravity,Urine 1.027 (1.001-1.035); Squamous Epithelial Cell,Urine <1 /hpf (0-4); WBC,Urine 2 /hpf (0-5)
[2019-12-21 12:00] LABS: HCT 41.7 % (34.0-46.0); HGB 13.3 gm/dL (11.4-16.0); MCH 31.7 pg (25.0-35.0); MCV 99.2 fL (80.0-100.0); Mean Platelet Volume 7.5; Platelet Count 234 k/uL (150-450); RDW 14.4 % (11.5-15.5); WBC 7.3 k/uL (3.8-10.6)
[2019-12-21 16:44] LABS: African American GFR (CKD) 74.6 (60.0-200.0); Albumin 4.2 g/dL (3.80-4.90); Albumin/Globulin Ratio 1.91 (1.60-3.17); Anion Gap 8.9 mmol/L (4.00-12.00); BUN/Creat Ratio 15.56 Ratio (12.00-20.00); Calcium 9.6 mg/dL (8.7-10.3); Carbon Dioxide 27.1 mmol/L (21.6-31.8); Chol/HDL Ratio 5.82; Globulin 2.2 g/dL (1.6-3.3); LDL Cholesterol,Calculated 186.4 mg/dL (0.0-131.0); Non-African American GFR(CKD) 64.3 (60.0-200.0); Total Bilirubin 0.4 mg/dL (0.3-1.2); Total Protein 6.4 g/dL (6.2-8.2); VLDL Calculation 54.6 mg/dL (5.00-40.00)
[2019-12-21 16:53] LABS: T4, Free (Free Thyroxine) 1.2 ng/dL (0.80-1.80)
== END | disposition home or self-care (01) ==
LOC: LABWHC1 10:19
PROVIDERS: ATTEND Physician Assistant
DX: Z00.01 Encounter for general adult medical examination with abnormal findings (principal); Z13.220 Encounter for screening for lipoid disorders; R53.83 Other fatigue; Z13.9 Encounter for screening, unspecified
CPT/HCPCS: 36415; 80053; 80061; 81001; 82306; 84439; 84443; 85027; 86803

== ENCOUNTER → 2020-01-09 | Outpatient (CLI) | payer MEDICARE ==
[2020-01-09 15:34] LABS: Basophils # (A) 0.1 k/uL (0-0.2); Basophils % (A) 1 %; Eosinophils # (A) 0.1 k/uL (0-0.7); Eosinophils % (A) 1 %; HGB 13.1 gm/dL (11.4-16.0); Lymphocytes # (A) 1.7 k/uL (1.0-4.8); Lymphocytes % (A) 22 %; MCH 31.5 pg (25.0-35.0); MCV 98.5 fL (80.0-100.0); Mean Platelet Volume 7.5; Monocytes # (A) 0.6 k/uL (0-1.0); Monocytes % (A) 7 %; Neutrophils # (A) 5.3 k/uL (1.3-7.7); Neutrophils % (A) 67 %; Platelet Count 254 k/uL (150-450); RBC 4.16 m/uL (3.80-5.40); RDW 14.3 % (11.5-15.5); WBC 7.9 k/uL (3.8-10.6)
[2020-01-09 23:18] LABS: African American GFR (CKD) 74.6 (60.0-200.0); Albumin 4.1 g/dL (3.80-4.90); C Reactive Protein 0.7 mg/dL (0.0-0.8); Calcium 9.5 mg/dL (8.7-10.3); Non-African American GFR(CKD) 64.3 (60.0-200.0)
[2020-01-09 23:31] LABS: Erythrocyte Sedimentation Rate 21 mm/Hr (0-30)
== END | disposition home or self-care (01) ==
LOC: LABWHC1 12:49
PROVIDERS: ATTEND Internal Medicine Rheumatology
DX: M25.50 Pain in unspecified joint (principal); M45.6 Ankylosing spondylitis lumbar region; Z79.899 Other long term (current) drug therapy
CPT/HCPCS: 36415; 82040; 82310; 82565; 84450; 84460; 84520; 85025; 85652; 86140

== ENCOUNTER → 2020-03-04 | Outpatient (CLI) | payer MEDICARE ==
[2020-03-04 08:48] LABS: ALT 17 U/L (4-34); AST 24 U/L (14-36); African American GFR (CKD) 83 (>60 ml/min/1.73 sqM); Albumin 4.1 g/dL (3.5-5.0); Albumin/Globulin Ratio 1.5; Alkaline Phosphatase 96 U/L (38-126); Anion Gap 7 mmol/L; Basophils # (A) 0.1 k/uL (0-0.2); Basophils % (A) 1 %; Blood Urea Nitrogen 18 mg/dL (7-17); Calcium 9.9 mg/dL (8.4-10.2); Carbon Dioxide 25 mmol/L (22-30); Chloride 107 mmol/L (98-107); Cholesterol 279 mg/dL (<200); Eosinophils # (A) 0.1 k/uL (0-0.7); Eosinophils % (A) 2 %; Globulin 2.7 g/dL; Glucose 105 mg/dL (74-99); HCT 45.3 % (34.0-46.0); HDL Cholesterol 52 mg/dL (40-60); HGB 14.6 gm/dL (11.4-16.0); LDL Cholesterol,Calculated 173 mg/dL (0-99); Lymphocytes # (A) 1.9 k/uL (1.0-4.8); Lymphocytes % (A) 26 %; MCH 31.5 pg (25.0-35.0); MCHC 32.3 g/dL (31.0-37.0); MCV 97.5 fL (80.0-100.0); Mean Platelet Volume 7.5; Monocytes # (A) 0.4 k/uL (0-1.0); Monocytes % (A) 6 %; Neutrophils # (A) 4.6 k/uL (1.3-7.7); Neutrophils % (A) 63 %; Non-African American GFR(CKD) 72 (>60 ml/min/1.73 sqM); Platelet Count 264 k/uL (150-450); Potassium 4.5 mmol/L (3.5-5.1); RBC 4.64 m/uL (3.80-5.40); RDW 13.7 % (11.5-15.5); Sodium 139 mmol/L (137-145); Total Bilirubin 0.6 mg/dL (0.2-1.3); Total Protein 6.8 g/dL (6.3-8.2); Triglycerides 270 mg/dL (<150); WBC 7.3 k/uL (3.8-10.6)
[2020-03-04 09:05] LABS: C Reactive Protein 7.4 mg/L (<10.0)
[2020-03-04 10:18] LABS: Erythrocyte Sedimentation Rate 11 mm/hr (0-20)
== END | disposition home or self-care (01) ==
LOC: LABWHC1 08:10
PROVIDERS: ATTEND Internal Medicine Rheumatology
DX: E78.5 Hyperlipidemia, unspecified (principal); M06.4 Inflammatory polyarthropathy; Z79.01 Long term (current) use of anticoagulants; M25.50 Pain in unspecified joint
CPT/HCPCS: 36415; 80053; 80061; 85025; 85652; 86140

== ENCOUNTER → 2020-07-07 | Outpatient (CLI) | payer MEDICARE ==
[2020-07-07 08:29] LABS: Basophils # (A) 0.1 k/uL (0-0.2); Basophils % (A) 1 %; Eosinophils # (A) 0.1 k/uL (0-0.7); Eosinophils % (A) 2 %; HCT 42.1 % (34.0-46.0); HGB 14.3 gm/dL (11.4-16.0); Lymphocytes # (A) 1.6 k/uL (1.0-4.8); Lymphocytes % (A) 27 %; MCH 32.3 pg (25.0-35.0); MCHC 33.9 g/dL (31.0-37.0); MCV 95.1 fL (80.0-100.0); Mean Platelet Volume 7.4; Monocytes # (A) 0.4 k/uL (0-1.0); Monocytes % (A) 7 %; Neutrophils # (A) 3.7 k/uL (1.3-7.7); Neutrophils % (A) 61 %; Platelet Count 215 k/uL (150-450); RBC 4.43 m/uL (3.80-5.40); RDW 13.4 % (11.5-15.5)
[2020-07-07 10:28] LABS: African American GFR (CKD) 74.6 (60.0-200.0); Albumin 4.1 g/dL (3.80-4.90); C Reactive Protein 0.5 mg/dL (0.0-0.8); Calcium 9.5 mg/dL (8.7-10.3); Chol/HDL Ratio 4.85; LDL Cholesterol,Calculated 152.8 mg/dL (0.0-131.0); Non-African American GFR(CKD) 64.3 (60.0-200.0); VLDL Calculation 51.2 mg/dL (5.00-40.00)
[2020-07-07 10:38] LABS: Erythrocyte Sedimentation Rate 11 mm/hr (0-20)
== END | disposition home or self-care (01) ==
LOC: LABWHC1 07:07
PROVIDERS: ATTEND Nurse Practitioner Adult Health
DX: E78.5 Hyperlipidemia, unspecified (principal); M25.50 Pain in unspecified joint; M06.4 Inflammatory polyarthropathy; M81.0 Age-related osteoporosis without current pathological fracture; Z79.899 Other long term (current) drug therapy
CPT/HCPCS: 36415; 80061; 82040; 82306; 82310; 82565; 83970; 84075; 84450; 84460; 84520; 85025; 85652; 86140

== ENCOUNTER → 2020-10-24 | Outpatient (CLI) | payer MEDICARE ==
[2020-10-24 10:50] LABS: Basophils # (A) 0.06 X 10*3/uL (0.00-0.10); Eosinophils # (A) 0.11 X 10*3/uL (0.04-0.35); Eosinophils % (A) 1.9 %; HCT 45.5 % (37.2-46.3); HGB 14.4 g/dL (12.0-15.0); Lymphocytes # (A) 1.64 X 10*3/uL (0.90-5.00); Lymphocytes % (A) 28.4 %; MCH 30.6 pg (27.0-32.0); MCHC 31.6 g/dL (32.0-37.0); MCV 96.8 fL (80.0-97.0); Mean Platelet Volume 10.3 fL (9.5-12.2); Monocytes # (A) 0.52 X 10*3/uL (0.20-1.00); Neutrophils # (A) 3.43 X 10*3/uL (1.80-7.70); Neutrophils % (A) 59.4 %; Platelet Count 205 X 10*3/uL (140-440); RDW 13.3 % (11.5-14.5); WBC 5.78 X 10*3/uL (4.50-10.00)
[2020-10-24 17:17] LABS: Hemoglobin A1C 5.3 % (4.0-6.0)
[2020-10-24 17:22] LABS: Erythrocyte Sedimentation Rate 1 mm/Hr (0-30)
[2020-10-25 01:19] LABS: Albumin 4.1 g/dL (3.80-4.90); Calcium 9.9 mg/dL (8.7-10.3); Chol/HDL Ratio 4.8; LDL Cholesterol,Calculated 156.2 mg/dL (0.0-131.0); VLDL Calculation 48.8 mg/dL (5.00-40.00)
== END | disposition home or self-care (01) ==
LOC: LABWHC1 07:06
PROVIDERS: ATTEND Family Medicine
DX: E78.5 Hyperlipidemia, unspecified (principal); E55.9 Vitamin D deficiency, unspecified; M25.50 Pain in unspecified joint; M06.4 Inflammatory polyarthropathy; Z79.899 Other long term (current) drug therapy
CPT/HCPCS: 36415; 80061; 82040; 82306; 82310; 82784; 83036; 85025; 85652

== ENCOUNTER → 2020-12-08 | Outpatient (CLI) | payer MEDICARE ==
--- NOTE | 2020-12-10 11:02 | MM ---
Reason for exam: screening (asymptomatic). Last mammogram was performed 2 years and 4 months ago. History: Patient is postmenopausal and history of other cancer. Excisional biopsy of the right breast. Took estrogen. Physical Findings: A clinical breast exam by your physician is recommended on an annual basis and results should be correlated with mammographic findings. MG 3D Screening Mammo W/Cad Bilateral CC and MLO view(s) were taken. Prior study comparison: August 21, 2018, bilateral MG 3d screening mammo w/cad. August 12, 2017, bilateral MG 3d screening mammo w/cad. There are scattered fibroglandular densities. No significant changes when compared with prior studies. ASSESSMENT: Benign, BI-RAD 2 RECOMMENDATION: Routine screening mammogram of both breasts in 1 year.
== END | disposition home or self-care (01) ==
LOC: RADMAMWWP 09:08
PROVIDERS: ATTEND Family Medicine
DX: Z12.31 Encounter for screening mammogram for malignant neoplasm of breast (principal); Z78.0 Asymptomatic menopausal state
CPT/HCPCS: 77063; 77067

== ENCOUNTER → 2020-12-29 | Outpatient (CLI) | payer MEDICARE ==
[2020-12-29 11:29] LABS: Basophils # (A) 0.04 X 10*3/uL (0.00-0.10); Basophils % (A) 0.7 %; Eosinophils # (A) 0.13 X 10*3/uL (0.04-0.35); Eosinophils % (A) 2.4 %; Lymphocytes # (A) 1.64 X 10*3/uL (0.90-5.00); Lymphocytes % (A) 29.8 %; MCHC 32.6 g/dL (32.0-37.0); MCV 95.3 fL (80.0-97.0); Mean Platelet Volume 10.5 fL (9.5-12.2); Monocytes # (A) 0.37 X 10*3/uL (0.20-1.00); Monocytes % (A) 6.7 %; Neutrophils # (A) 3.32 X 10*3/uL (1.80-7.70); Neutrophils % (A) 60.2 %; Platelet Count 210 X 10*3/uL (140-440); RBC 4.51 X 10*6/uL (4.10-5.20); RDW 13.3 % (11.5-14.5); WBC 5.51 X 10*3/uL (4.50-10.00)
[2020-12-29 13:39] LABS: C Reactive Protein 0.7 mg/dL (0.0-0.8); Non-African American GFR(CKD) 63.9 (60.0-200.0)
[2020-12-29 14:38] LABS: Erythrocyte Sedimentation Rate 22 mm/Hr (0-30)
== END | disposition home or self-care (01) ==
LOC: LABWHC1 07:05
PROVIDERS: ATTEND Internal Medicine Rheumatology
DX: M25.50 Pain in unspecified joint (principal)
CPT/HCPCS: 36415; 82565; 84450; 84460; 84520; 85025; 85652; 86140; 86200; 86431

== ENCOUNTER → 2021-03-30 | Outpatient (CLI) | payer MEDICARE ==
[2021-03-30 20:02] LABS: Basophils # (A) 0.07 X 10*3/uL (0.00-0.10); Eosinophils # (A) 0.06 X 10*3/uL (0.04-0.35); Eosinophils % (A) 0.9 %; HCT 43.4 % (37.2-46.3); Lymphocytes # (A) 1.42 X 10*3/uL (0.90-5.00); Lymphocytes % (A) 20.2 %; MCH 32.1 pg (27.0-32.0); MCHC 32.3 g/dL (32.0-37.0); MCV 99.5 fL (80.0-97.0); Monocytes # (A) 0.49 X 10*3/uL (0.20-1.00); Neutrophils # (A) 4.95 X 10*3/uL (1.80-7.70); Neutrophils % (A) 70.5 %; Platelet Count 229 X 10*3/uL (140-440); RBC 4.36 X 10*6/uL (4.10-5.20); RDW 14.6 % (11.5-14.5); WBC 7.02 X 10*3/uL (4.50-10.00)
[2021-03-30 21:11] LABS: Erythrocyte Sedimentation Rate 17 mm/Hr (0-30)
[2021-03-30 21:12] LABS: Cyclic Citrull Pep IgG Unit >300.0 U/mL; Cyclic Citrullinated Pep IgG POSITIVE (NEGATIVE)
[2021-03-30 21:56] LABS: African American GFR (CKD) 65.2 (60.0-200.0); C Reactive Protein 0.9 mg/dL (0.0-0.8); Non-African American GFR(CKD) 56.2 (60.0-200.0)
== END | disposition home or self-care (01) ==
LOC: LABWHC1 11:15
PROVIDERS: ATTEND Internal Medicine Rheumatology
DX: M06.4 Inflammatory polyarthropathy (principal); Z79.01 Long term (current) use of anticoagulants
CPT/HCPCS: 36415; 82565; 84450; 84460; 84520; 85025; 85652; 86140; 86200; 86431

== ENCOUNTER → 2021-07-03 | Outpatient (CLI) | payer MEDICARE ==
[2021-07-03 14:43] LABS: Basophils # (A) 0.05 X 10*3/uL (0.00-0.10); Basophils % (A) 0.9 %; Eosinophils # (A) 0.13 X 10*3/uL (0.04-0.35); Eosinophils % (A) 2.3 %; HCT 44.7 % (37.2-46.3); HGB 13.8 g/dL (12.0-15.0); Lymphocytes % (A) 28.3 %; MCH 30.9 pg (27.0-32.0); MCHC 30.9 g/dL (32.0-37.0); Mean Platelet Volume 10.5 fL (9.5-12.2); Monocytes # (A) 0.55 X 10*3/uL (0.20-1.00); Monocytes % (A) 9.7 %; Neutrophils % (A) 58.4 %; Platelet Count 227 X 10*3/uL (140-440); RBC 4.47 X 10*6/uL (4.10-5.20); RDW 12.7 % (11.5-14.5); WBC 5.65 X 10*3/uL (4.50-10.00)
[2021-07-03 16:40] LABS: ALT 18 U/L (8-44); AST 21 U/L (13-35); African American GFR (CKD) 67.8 (60.0-200.0); Albumin/Globulin Ratio 1.57 (1.60-3.17); Alkaline Phosphatase 111 U/L (41-126); BUN/Creat Ratio 12.09 Ratio (12.00-20.00); Blood Urea Nitrogen 11.7 mg/dL (9.0-27.0); Calcium 9.6 mg/dL (8.7-10.3); Carbon Dioxide 22.3 mmol/L (20.0-27.5); Chloride 106 mmol/L (96-109); Chol/HDL Ratio 5.41 Ratio; Globulin 2.6 g/dL (1.6-3.3); Glucose 116 mg/dL (70-110); LDL Cholesterol,Calculated 184.2 mg/dL (0.0-131.0); Non-African American GFR(CKD) 58.5 (60.0-200.0); Potassium 4.3 mmol/L (3.5-5.5); Sodium 143 mmol/L (135-145); Total Protein 6.6 g/dL (6.2-8.2)
[2021-07-03 18:18] LABS: Erythrocyte Sedimentation Rate 21 mm/Hr (0-30)
== END | disposition home or self-care (01) ==
LOC: LABWHC1 08:20
PROVIDERS: ATTEND Family Medicine
DX: I25.10 Atherosclerotic heart disease of native coronary artery without angina pectoris (principal); E55.9 Vitamin D deficiency, unspecified; M25.50 Pain in unspecified joint; Z79.01 Long term (current) use of anticoagulants
CPT/HCPCS: 36415; 80053; 80061; 82306; 85025; 85652; 86140

== ENCOUNTER 2021-10-21 22:27 | Emergency (ER) | payer MEDICARE ==
[2021-10-21 22:31] VITALS: RESP 16; TEMP 97.4
--- NOTE | 2021-10-21 23:03 | XR ---
EXAMINATION TYPE: XR chest 2V DATE OF EXAM: 10/21/2021 COMPARISON: 08/24/2019 HISTORY: Cough TECHNIQUE: 2 views FINDINGS: There are some mild linear density at the lung bases. Heart size is normal. There are no hi lar masses. Bony thorax is intact. IMPRESSION: There is mild subsegmental atelectasis at the lung bases unchanged. Normal heart.
[2021-10-22 00:21] LABS: Anisocytosis Slight; Basophils # (A) 0.1 k/uL (0-0.2); Basophils % (A) 1 %; Eosinophils # (A) 0.1 k/uL (0-0.7); Eosinophils % (A) 2 %; HCT 44.1 % (34.0-46.0); HGB 14.5 gm/dL (11.4-16.0); Lymphocytes # (A) 2.1 k/uL (1.0-4.8); Lymphocytes % (A) 28 %; MCH 32.4 pg (25.0-35.0); MCHC 32.8 g/dL (31.0-37.0); MCV 98.9 fL (80.0-100.0); Macrocytosis Slight; Mean Platelet Volume 7.5; Monocytes # (A) 0.5 k/uL (0-1.0); Monocytes % (A) 7 %; Neutrophils # (A) 4.4 k/uL (1.3-7.7); Neutrophils % (A) 60 %; Platelet Count 292 k/uL (150-450); RBC 4.46 m/uL (3.80-5.40); RDW 16.5 % (11.5-15.5); WBC 7.3 k/uL (3.8-10.6)
[2021-10-22 00:34] LABS: Albumin 4.5 g/dL (3.5-5.0); Calcium 10.1 mg/dL (8.4-10.2); Total Bilirubin 0.6 mg/dL (0.2-1.3); Total Protein 7.9 g/dL (6.3-8.2)
[2021-10-22 00:47] LABS: Magnesium 2.2 mg/dL (1.6-2.3); Potassium 4.3 mmol/L (3.5-5.1)
[2021-10-22] MEDS ORDERED: diphenhydrAMINE 50 MG/ML 1 ML VIAL IVP STA (01:05)
[2021-10-22] MEDS ORDERED: methylPREDNISolone SOD SUCCI 125 MG/2 ML VIAL IV STA (01:05)
[2021-10-22] MEDS ORDERED: FAMOTIDINE 20 MG/2 ML VIAL IV STA (01:05)
[2021-10-22 01:06] LABS: INR 0.9 (<1.2); Prothrombin Time 9.9 sec (9.0-12.0)
[2021-10-22] MEDS ORDERED: MORPHINE SULFATE 4 MG/ML SYRINGE IV STA (01:33)
[2021-10-22] MEDS ORDERED: ONDANSETRON 4 MG/2 ML VIAL IVP STA (01:33)
[2021-10-22] MEDS ORDERED: ACETAMINOPHEN TAB 500 MG TAB PO STA (02:02)
--- NOTE | 2021-10-22 02:20 | CT ---
EXAMINATION TYPE: CT angio thor/abd pel aorta DATE OF EXAM: 10/22/2021 COMPARISON: None HISTORY: chest and back pain. no prior on PACS. CT DLP: 1433.3 mGycm Automated exposure control for dose reduction was used. CONTRAST: Performed with IV Contrast, patient injected with 100ml mL of Isovue 370. Images obtained from the thoracic inlet to the floor the pelvis with IV contrast. There are Three-D p ostprocessed images. There is normal branching pattern of the great vessels off the aortic arch. Thoracic aorta is atherom atous. No aneurysm or dissection. There is normal contrast opacification of the pulmonary arteries. T here are no filling defects. There is extensive irregular plaque formation in the abdominal aorta. Th ere is arterial flow in the celiac artery and superior mesenteric artery. There is 80% stenosis at th e origin of the celiac artery. There is approximate 80% stenosis also at the origin of the superior m esenteric artery. There is arterial flow in both renal arteries. No evidence of hemodynamic stenosis. There is arterial flow in the iliac arteries. No stenosis. There is no evidence of arterial aneurysm or dissection. There is normal contrast opacification of the kidneys. No hydronephrosis. Liver spleen stomach pancre as appear intact. There are clips from cholecystectomy. The bile ducts are not dilated. There is no mesenteric edema. No ascites or free air. No bowel obstruction. The lungs are clear of consolidation. No pulmonary mass. Mild subsegmental atelectasis is present at the lung bases. The thoracic and lumbar spine appear intact with no sign of a fracture. IMPRESSION: No evidence of pulmonary embolism. Atherosclerotic vascular disease with extensive plaque in the abdo concepcion aorta. 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 No aortic aneurysm or dissection.
[2021-10-22 03:07] VITALS: BP 148/72; PULSE 97
--- NOTE | 2021-10-22 03:24 | ED ---
Chest Pain HPI - General Chief Complaint: Chest Pain Stated Complaint: Chest and Back pain Time Seen by Provider: 10/22/21 00:43 Source: patient Mode of arrival: wheelchair - History of Present Illness MD Complaint: chest pain -: days(s) Onset: during rest Pain Location: substernal Pain Radiation: back Severity: moderate Quality: aching Consistency: constant Improves With: nothing Worsens With: nothing Treatments Prior to Arrival: none - Related Data Home Medications Medication Instructions Recorded Confirmed Aspirin 81 mg PO DAILY 08/25/15 12/04/18 Simvastatin 10 mg PO Q2D 08/25/15 12/04/18 Albuterol Sulfate [Proair Hfa] 1 - 2 puff INHALATION Q6HR PRN 11/20/18 11/30/18 Cholecalciferol (Vitamin D3) 2,000 unit PO DAILY 11/20/18 12/04/18 [Vitamin D3] Folic Acid 1 mg PO DAILY 11/20/18 12/04/18 Furosemide [Lasix] 20 mg PO DAILY 11/20/18 12/04/18 Hydroxychloroquine Sulfate 200 mg PO BID 11/20/18 12/04/18 [Plaquenil] Losartan [Cozaar] 25 mg PO DAILY 11/20/18 12/04/18 Metoprolol Tartrate [Lopressor] 25 mg PO BID 11/20/18 12/04/18 Potassium Chloride [Klor-Con 20] 20 meq PO DAILY 11/20/18 12/04/18 metHOTREXate sodium [Methotrexate] 7.5 mg PO WILLARD 11/20/18 12/04/18 predniSONE 2.5 mg PO DAILY 11/20/18 12/04/18 Previous Rx's Medication Instructions Recorded Clopidogrel [Plavix] 75 mg PO DAILY #90 tab 12/05/18 Allergies Allergy/AdvReac Type Severity Reaction Status Date / Time Iodinated Contrast Media Allergy Rash/Hives Verified 10/21/21 22:32 [Iodinated Contrast- Oral and IV Dye] latex Allergy Anaphylaxis Verified 10/21/21 22:32 nickel Allergy Rash/Hives Verified 10/21/21 22:32 Penicillins Allergy Rash/Hives Verified 10/21/21 22:32 Sulfa (Sulfonamide Allergy Anaphylaxis Verified 10/21/21 22:32 Antibiotics) tree nut [Nut] Allergy Anaphylaxis Verified 10/21/21 22:32 wool Allergy Rash/Hives Verified 10/21/21 22:32 morphine AdvReac Confusion Verified 10/22/21 01:37 alcohol swabs Allergy Rash/Hives Uncoded 11/30/18 09:56 cidex-opa Allergy Anaphylaxis Uncoded 11/30/18 09:56 Review of Systems ROS Statement: Those systems with pertinent positive or pertinent negative responses have been documented in the HPI. ROS Other: All systems not noted in ROS Statement are negative. Constitutional: Denies: fever, chills Respiratory: Denies: cough, dyspnea Cardiovascular: Reports: chest pain. 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 no hx blood transfusion Past Psychological History: No Psychological Hx Reported Smoking Status: Former smoker Past Alcohol Use History: Rare Past Drug Use History: None Reported - Past Family History Mother Family Medical History: No Reported History Father Family Medical History: CVA/TIA Additional Family Medical History / Comment(s): carotid stenosis General Exam General appearance: alert, in no apparent distress Head exam: Present: atraumatic, normocephalic Eye exam: Present: normal appearance. Absent: scleral icterus, conjunctival injection Neck exam: Present: normal inspection, full ROM. Absent: tenderness Respiratory exam: Present: normal lung sounds bilaterally. Absent: respiratory distress, wheezes, rales, rhonchi, stridor, chest wall tenderness, accessory muscle use Cardiovascular Exam: Present: regular rate, normal rhythm, normal heart sounds. Absent: systolic murmur, diastolic murmur, rubs, gallop GI/Abdominal exam: Present: soft. Absent: distended, tenderness, guarding, rebound Extremities exam: Present: normal inspection, normal capillary refill. Absent: pedal edema, calf tenderness Back exam: Present: normal inspection. Absent: CVA tenderness (R), CVA tenderness (L) Neurological exam: Present: alert Skin exam: Present: warm, dry, intact, normal color. Absent: rash Course Vital Signs 10/21/21 10/22/21 10/22/21 22:28 00:39 03:06 Temperature 97.4 F L Pulse Rate 104 H 98 97 Respiratory 16 16 16 Rate Blood Pressure 192/72 195/93 148/72 O2 Sat by Pulse 97 97 98 Oximetry Disposition Clinical Impression: Back pain, Hypertension Disposition: HOME SELF-CARE Condition: Good Instructions (If sedation given, give patient instructions): Hypertension (ED), Back Pain (ED) Is patient prescribed a controlled substance at d/c from ED?: No Referrals: Winsome Ferrer MD [Primary Care Provider] - 1-2 days
== END 2021-10-22 03:39 | disposition home or self-care (01) ==
LOC: EC 22:27
DX: I10 Essential (primary) hypertension (principal); M54.9 Dorsalgia, unspecified; J44.9 Chronic obstructive pulmonary disease, unspecified; E78.5 Hyperlipidemia, unspecified; M06.9 Rheumatoid arthritis, unspecified; Z79.82 Long term (current) use of aspirin; Z79.52 Long term (current) use of systemic steroids; Z79.02 Long term (current) use of antithrombotics/antiplatelets; Z87.891 Personal history of nicotine dependence; Z88.0 Allergy status to penicillin; Z88.2 Allergy status to sulfonamides; Z88.5 Allergy status to narcotic agent; Z79.899 Other long term (current) drug therapy
CPT/HCPCS: 36415; 93005; 85379; 80053; 83735; 84484; 85025; 85610; 85730; 71046; 71275; 74174; 99285; 96374; 96375 ×3; J1200; J2930; J2405; Q9967

== ENCOUNTER → 2021-12-02 | Outpatient (CLI) | payer MEDICARE ==
[2021-12-02 13:44] LABS: Basophils # (A) 0.2 k/uL (0-0.2); Basophils % (A) 2 %; Eosinophils # (A) 0.2 k/uL (0-0.7); Eosinophils % (A) 2 %; HCT 43.2 % (34.0-46.0); HGB 13.7 gm/dL (11.4-16.0); Lymphocytes # (A) 1.7 k/uL (1.0-4.8); Lymphocytes % (A) 19 %; MCH 31.3 pg (25.0-35.0); MCHC 31.6 g/dL (31.0-37.0); Mean Platelet Volume 7.8; Monocytes # (A) 0.7 k/uL (0-1.0); Monocytes % (A) 8 %; Neutrophils % (A) 68 %; Platelet Count 231 k/uL (150-450); RBC 4.37 m/uL (3.80-5.40); RDW 14.1 % (11.5-15.5); WBC 8.8 k/uL (3.8-10.6)
== END | disposition home or self-care (01) ==
LOC: LABWHC1 13:08
PROVIDERS: ATTEND Internal Medicine Rheumatology
DX: M06.4 Inflammatory polyarthropathy (principal); Z79.01 Long term (current) use of anticoagulants
CPT/HCPCS: 36415; 85025; 86140

== ENCOUNTER → 2022-01-14 | Outpatient (CLI) | payer MEDICARE ==
--- NOTE | 2022-01-15 08:15 | MM ---
Reason for Exam: Screening (asymptomatic). Last mammogram was performed 1 year(s) and 1 month(s) ago. Patient History: Menarche at age 13. First Full-Term at age 18. Left ovary removed at age 38. Right ovary removed at age 38. Hysterectomy at age 27. Postmenopausal. Other cancer. Estrogen, ending at age 51. Excisional Biopsy on the Right side. Risk Values: Christin 5 year model risk: 1.7%. NCI Lifetime model risk: 4.2%. Prior Study Comparison: 08/12/2017 Bilateral Screening Mammogram, [facility]. 08/21/2018 Bilateral Screening Mammogram, [facility]. 12/08/2020 Bilateral Screening Mammogram, [facility]. Tissue Density: There are scattered fibroglandular densities. Findings: Analyzed By CAD. Some benign vascular calcification in the right breast is redemonstrated. Stable distortion in the right breast consistent with prior excisional biopsy. There is occasional scattered benign-appearing round calcification in the left breast redemonstrated. There is no suspicious group of microcalcifications or new suspicious mass in either breast. Overall Assessment: Benign, BI-RAD 2 Management: Screening Mammogram of both breasts in 1 year. A clinical breast exam by your physician is recommended on an annual basis and results should be correlated with mammographic findings. Electronically signed and approved by: Aguilar Olivares M.D.
== END | disposition home or self-care (01) ==
LOC: RADMAMWWP 07:56
PROVIDERS: ATTEND Family Medicine
DX: Z12.31 Encounter for screening mammogram for malignant neoplasm of breast (principal); Z78.0 Asymptomatic menopausal state
CPT/HCPCS: 77063; 77067

== ENCOUNTER → 2022-06-03 | Outpatient (CLI) | payer MEDICARE ==
[2022-06-03 10:33] LABS: Basophils # (A) 0.05 X 10*3/uL (0.00-0.10); Basophils % (A) 0.8 %; Eosinophils # (A) 0.15 X 10*3/uL (0.04-0.35); Eosinophils % (A) 2.5 %; HCT 46.3 % (37.2-46.3); HGB 14.8 g/dL (12.0-15.0); Immature Grans, Automated 0.5 %; Lymphocytes # (A) 1.98 X 10*3/uL (0.90-5.00); Lymphocytes % (A) 32.4 %; MCH 31.4 pg (27.0-32.0); MCV 98.3 fL (80.0-97.0); Mean Platelet Volume 9.9 fL (9.5-12.2); Monocytes # (A) 0.58 X 10*3/uL (0.20-1.00); Monocytes % (A) 9.5 %; NRBC Per 100 WBC 0 /100 WBCS (0.0-0.0); Neutrophils # (A) 3.32 X 10*3/uL (1.80-7.70); Neutrophils % (A) 54.3 %; Platelet Count 232 X 10*3/uL (140-440); RBC 4.71 X 10*6/uL (4.10-5.20); RDW 13.4 % (11.5-14.5); WBC 6.11 X 10*3/uL (4.50-10.00)
[2022-06-03 11:19] LABS: African American GFR (CKD) 64.7 (60.0-200.0); BUN/Creat Ratio 13.6 Ratio (12.00-20.00); Blood Urea Nitrogen 13.6 mg/dL (9.0-27.0); Calcium 10.2 mg/dL (8.7-10.3); Non-African American GFR(CKD) 55.8 (60.0-200.0); Potassium 4.3 mmol/L (3.5-5.5)
[2022-06-03 12:21] LABS: Erythrocyte Sedimentation Rate 47 mm/Hr (0-30)
== END | disposition home or self-care (01) ==
LOC: LABWHC1 07:12
PROVIDERS: ATTEND Internal Medicine Rheumatology
DX: M06.9 Rheumatoid arthritis, unspecified (principal); M25.50 Pain in unspecified joint; M06.4 Inflammatory polyarthropathy; Z79.01 Long term (current) use of anticoagulants
CPT/HCPCS: 36415; 80048; 82306; 84450; 84460; 85025; 85652

== ENCOUNTER → 2022-07-26 | Outpatient (CLI) | payer MEDICARE ==
[2022-07-26 10:41] LABS: Basophils # (A) 0.06 X 10*3/uL (0.00-0.10); Basophils % (A) 0.9 %; Eosinophils # (A) 0.13 X 10*3/uL (0.04-0.35); Eosinophils % (A) 1.9 %; HCT 43.1 % (37.2-46.3); HGB 13.7 g/dL (12.0-15.0); Immature Grans, Automated 0.3 %; Lymphocytes # (A) 2.32 X 10*3/uL (0.90-5.00); Lymphocytes % (A) 34.1 %; MCH 30.9 pg (27.0-32.0); MCHC 31.8 g/dL (32.0-37.0); MCV 97.3 fL (80.0-97.0); Mean Platelet Volume 10.3 fL (9.5-12.2); Monocytes # (A) 0.32 X 10*3/uL (0.20-1.00); Monocytes % (A) 4.7 %; NRBC Per 100 WBC 0 /100 WBCS (0.0-0.0); Neutrophils # (A) 3.96 X 10*3/uL (1.80-7.70); Neutrophils % (A) 58.1 %; Platelet Count 229 X 10*3/uL (140-440); RBC 4.43 X 10*6/uL (4.10-5.20); RDW 14.6 % (11.5-14.5); WBC 6.81 X 10*3/uL (4.50-10.00)
[2022-07-26 11:37] LABS: ALT 27 U/L (8-44); AST 28 U/L (13-35); African American GFR (CKD) 73.5 (60.0-200.0); Albumin/Globulin Ratio 1.48 (1.60-3.17); Alkaline Phosphatase 102 U/L (41-126); BUN/Creat Ratio 12.44 Ratio (12.00-20.00); Blood Urea Nitrogen 11.2 mg/dL (9.0-27.0); Calcium 9.9 mg/dL (8.7-10.3); Carbon Dioxide 27.2 mmol/L (20.0-27.5); Chloride 104 mmol/L (96-109); Chol/HDL Ratio 5.22 Ratio; Globulin 2.7 g/dL (1.6-3.3); Glucose 101 mg/dL (70-110); LDL Cholesterol,Calculated 157.4 mg/dL (0.0-131.0); Non-African American GFR(CKD) 63.4 (60.0-200.0); Potassium 3.9 mmol/L (3.5-5.5); Sodium 141 mmol/L (135-145); Total Protein 6.7 g/dL (6.2-8.2)
[2022-07-26 12:17] LABS: Appearance,Urine Clear (Clear); Bilirubin,Urine Negative (Negative); Blood,Urine Negative (Negative); Color,Urine Yellow (Yellow); Ketones,Urine Negative (Negative); Nitrite,Urine Negative (Negative); Specific Gravity,Urine 1.012 (1.001-1.030); Urobilinogen,Urine 0.2 (0.2,1.0)
[2022-07-26 12:24] LABS: Bacteria,Urine None Seen /HPF (None Seen)
== END | disposition home or self-care (01) ==
LOC: LABWHC1 07:02
PROVIDERS: ATTEND Family Medicine
DX: I10 Essential (primary) hypertension (principal); E78.5 Hyperlipidemia, unspecified
CPT/HCPCS: 36415; 80053; 80061; 81001; 82306; 84439; 84443; 85025

== ENCOUNTER → 2022-09-27 | Outpatient (CLI) | payer MEDICARE ==
[2022-09-27 12:01] LABS: Basophils # (A) 0.05 X 10*3/uL (0.00-0.10); Basophils % (A) 0.7 %; Eosinophils # (A) 0.13 X 10*3/uL (0.04-0.35); Eosinophils % (A) 1.8 %; HCT 43.7 % (37.2-46.3); HGB 13.9 g/dL (12.0-15.0); Immature Grans, Automated 0.3 %; Lymphocytes # (A) 2.12 X 10*3/uL (0.90-5.00); Lymphocytes % (A) 29.9 %; MCH 31.2 pg (27.0-32.0); MCHC 31.8 g/dL (32.0-37.0); MCV 98.2 fL (80.0-97.0); Mean Platelet Volume 10.4 fL (9.5-12.2); Monocytes # (A) 0.65 X 10*3/uL (0.20-1.00); Monocytes % (A) 9.2 %; NRBC Per 100 WBC 0 /100 WBCS (0.0-0.0); Neutrophils # (A) 4.12 X 10*3/uL (1.80-7.70); Neutrophils % (A) 58.1 %; Platelet Count 239 X 10*3/uL (140-440); RBC 4.45 X 10*6/uL (4.10-5.20); RDW 13.2 % (11.5-14.5); WBC 7.09 X 10*3/uL (4.50-10.00)
[2022-09-27 12:23] LABS: Chol/HDL Ratio 5.34 Ratio; LDL Cholesterol,Calculated 160.3 mg/dL (0.0-131.0)
[2022-09-27 12:24] LABS: ALT 17 U/L (8-44); AST 20 U/L (13-35); African American GFR (CKD) 73.6 (60.0-200.0); Albumin 4.1 g/dL (3.8-4.9); Albumin/Globulin Ratio 1.57 (1.60-3.17); Alkaline Phosphatase 117 U/L (41-126); BUN/Creat Ratio 14.13 Ratio (12.00-20.00); Blood Urea Nitrogen 12.7 mg/dL (9.0-27.0); Calcium 10.1 mg/dL (8.7-10.3); Carbon Dioxide 26.3 mmol/L (20.0-27.5); Chloride 104 mmol/L (96-109); Globulin 2.6 g/dL (1.6-3.3); Glucose 97 mg/dL (70-110); Non-African American GFR(CKD) 63.5 (60.0-200.0); Potassium 4.1 mmol/L (3.5-5.5); Sodium 142 mmol/L (135-145); Total Protein 6.7 g/dL (6.2-8.2)
[2022-09-27 13:12] LABS: Erythrocyte Sedimentation Rate 33 mm/Hr (0-30)
== END | disposition home or self-care (01) ==
LOC: LABWHC1 06:59
PROVIDERS: ATTEND Physician Assistant
DX: E78.5 Hyperlipidemia, unspecified (principal); M25.50 Pain in unspecified joint; M06.4 Inflammatory polyarthropathy; R79.89 Other specified abnormal findings of blood chemistry; Z79.01 Long term (current) use of anticoagulants
CPT/HCPCS: 36415; 80053; 80061; 84439; 84443; 84481; 85025; 85652; 86140

== ENCOUNTER → 2022-11-24 | Outpatient (CLI) | payer MEDICARE ==
[2022-11-24 11:06] LABS: Chol/HDL Ratio 3.63 Ratio; LDL Cholesterol,Calculated 116.4 mg/dL (0.0-131.0)
== END | disposition home or self-care (01) ==
LOC: LABWHC1 06:56
PROVIDERS: ATTEND Physician Assistant
DX: E78.5 Hyperlipidemia, unspecified (principal)
CPT/HCPCS: 36415; 80061

== ENCOUNTER → 2023-02-17 | Outpatient (CLI) | payer MEDICARE ==
--- NOTE | 2023-02-18 10:21 | MM ---
Reason for Exam: Screening (asymptomatic). Last mammogram was performed 1 year(s) and 1 month(s) ago. Patient History: Menarche at age 13. First Full-Term at age 18. Left ovary removed at age 38. Right ovary removed at age 38. Hysterectomy at age 27. Postmenopausal. Other cancer. Estrogen, ending at age 51. Excisional Biopsy on the Right side. Risk Values: Christin 5 year model risk: 1.7%. NCI Lifetime model risk: 3.9%. Prior Study Comparison: 08/21/2018 Bilateral Screening Mammogram, [facility]. 12/08/2020 Bilateral Screening Mammogram, [facility]. 01/14/2022 Bilateral MG 3D screening mammo w/cad, [facility]. Tissue Density: The breast tissue is heterogeneously dense. This may lower the sensitivity of mammography. Findings: Analyzed By CAD. There is no suspicious group of microcalcifications or new suspicious mass in either breast. Overall Assessment: Negative, BI-RAD 1 Management: Screening Mammogram of both breasts in 1 year. . Patient should continue monthly self-breast exams. A clinical breast exam by your physician is recommended on an annual basis. This exam should not preclude additional follow-up of suspicious palpable abnormalities. Note on Christin scores and lifetime risk: 1. A Christin score greater than 3% is considered moderate risk. If this is the case, consider specialist referral to assess eligibility for a risk reducing agent. 2. If overall lifetime risk for the development of breast cancer is 20% or higher, the patient may qualify for future screening with alternating mammogram and breast MRI. Electronically signed and approved by: Eze Robins M.D. Radiologis
== END | disposition home or self-care (01) ==
LOC: RADMAMWWP 07:29
PROVIDERS: ATTEND Family Medicine
DX: Z12.31 Encounter for screening mammogram for malignant neoplasm of breast (principal); Z78.0 Asymptomatic menopausal state
CPT/HCPCS: 77063; 77067

== ENCOUNTER → 2023-06-03 | Outpatient (CLI) | payer MEDICARE ==
[2023-06-03 15:39] LABS: Basophils # (A) 0.04 X 10*3/uL (0.00-0.10); Basophils % (A) 0.6 %; Eosinophils % (A) 1.5 %; HCT 43.6 % (37.2-46.3); HGB 14.2 g/dL (12.0-15.0); Lymphocytes # (A) 1.68 X 10*3/uL (0.90-5.00); Lymphocytes % (A) 25.5 %; MCH 31.9 pg (27.0-32.0); MCHC 32.6 g/dL (32.0-37.0); Mean Platelet Volume 10.3 FL (9.5-12.2); Monocytes # (A) 0.57 X 10*3/uL (0.20-1.00); Monocytes % (A) 8.6 %; NRBC Per 100 WBC 0 X 10*3/uL (0.00-0.01); Neutrophils % (A) 63.6 %; Platelet Count 200 X 10*3/uL (140-440); RBC 4.45 X 10*6/uL (4.10-5.20); RDW 14.7 % (11.5-14.5)
[2023-06-03 15:45] LABS: Erythrocyte Sedimentation Rate 25 mm/Hr (0-30)
[2023-06-03 16:23] LABS: ALT 27 U/L (8-44); AST 31 U/L (13-35); Albumin 4.1 g/dL (3.8-4.9); Albumin/Globulin Ratio 1.71 Ratio (1.60-3.17); Alkaline Phosphatase 116 U/L (41-126); BUN/Creat Ratio 15.67 Ratio (12.00-20.00); Blood Urea Nitrogen 14.1 mg/dL (9.0-27.0); Calcium 10.2 mg/dL (8.7-10.3); Carbon Dioxide 26.3 mmol/L (21.6-31.8); Chloride 105 mmol/L (96-109); Chol/HDL Ratio 4.41 Ratio; Globulin 2.4 g/dL (1.6-3.3); Glucose 112 mg/dL (70-110); LDL Cholesterol,Calculated 120.1 mg/dL (0.0-131.0); Potassium 4.1 mmol/L (3.5-5.5); Sodium 143 mmol/L (135-145); T4, Free (Free Thyroxine) 1.09 ng/dL (0.80-1.80); Total Bilirubin 0.3 mg/dL (0.3-1.2); Total Protein 6.5 g/dL (6.2-8.2)
[2023-06-03 16:27] LABS: Appearance,Urine Turbid (Clear); Bilirubin,Urine Negative (Negative); Blood,Urine Negative (Negative); Color,Urine Yellow (Yellow); Ketones,Urine Negative (Negative); Nitrite,Urine Negative (Negative); PH, Urine 5.5; Specific Gravity,Urine 1.024 (1.001-1.030)
[2023-06-03 17:02] LABS: Bacteria,Urine None Seen (None Seen); Calcium Oxalate Crystals,Urine Present (None Seen)
== END | disposition home or self-care (01) ==
LOC: LABWHC1 07:43
PROVIDERS: ATTEND Internal Medicine Rheumatology
DX: I10 Essential (primary) hypertension (principal); M25.50 Pain in unspecified joint; M06.4 Inflammatory polyarthropathy; E78.79 Other disorders of bile acid and cholesterol metabolism; Z79.01 Long term (current) use of anticoagulants
CPT/HCPCS: 36415; 80053; 80061; 81001; 82306; 82607; 82746; 84439; 84443; 85025; 85652; 86140; 86141

== ENCOUNTER → 2023-09-22 | Outpatient (CLI) | payer MEDICARE ==
[2023-09-22 11:19] LABS: Basophils # (A) 0.06 X 10*3/uL (0.00-0.10); Eosinophils # (A) 0.09 X 10*3/uL (0.04-0.35); Eosinophils % (A) 1.5 %; HCT 42.5 % (37.2-46.3); HGB 14.2 g/dL (12.0-15.0); Lymphocytes # (A) 1.82 X 10*3/uL (0.90-5.00); Lymphocytes % (A) 31.2 %; MCH 32.6 pg (27.0-32.0); MCHC 33.4 g/dL (32.0-37.0); MCV 97.7 FL (80.0-97.0); Mean Platelet Volume 10.2 FL (9.5-12.2); Monocytes # (A) 0.28 X 10*3/uL (0.20-1.00); Monocytes % (A) 4.8 %; NRBC Per 100 WBC 0 X 10*3/uL (0.00-0.01); Neutrophils # (A) 3.57 X 10*3/uL (1.80-7.70); Neutrophils % (A) 61.2 %; Platelet Count 216 X 10*3/uL (140-440); RBC 4.35 X 10*6/uL (4.10-5.20); WBC 5.84 X 10*3/uL (4.50-10.00)
[2023-09-22 11:57] LABS: ALT 24 U/L (8-44); AST 23 U/L (13-35); Blood Urea Nitrogen 12.7 mg/dL (9.0-27.0)
== END | disposition home or self-care (01) ==
LOC: LABWHC1 06:52
PROVIDERS: ATTEND Internal Medicine Rheumatology
DX: M25.50 Pain in unspecified joint (principal); Z79.01 Long term (current) use of anticoagulants
CPT/HCPCS: 36415; 82306; 82565; 84450; 84460; 84520; 85025

== ENCOUNTER → 2024-04-02 | Outpatient (CLI) | payer MEDICARE ==
--- NOTE | 2024-04-02 08:54 | CT ---
EXAMINATION TYPE: CT brain wo con CT DLP: 1144 mGycm, Automated exposure control for dose reduction was used. DATE OF EXAM: 04/02/2024 8:12 AM COMPARISON: None. 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 Contrast used: None. Oral contrast used: None. FINDINGS: Brain: Extra-axial spaces: No abnormal extra-axial fluid collections. Ventricular system: Dilatation in proportion to cerebral atrophy. Cerebral parenchyma: Cerebral atrophy. No acute intraparenchymal hemorrhage or mass effect. The hill -white junction is well differentiated. Scattered hypoattenuating areas are seen within the white mat ter. Cerebellum: Unremarkable. Mass effect: No evidence of midline shift. Intracranial vasculature: unremarkable Soft tissues: Normal. Calvarium/osseous structures: No depressed skull fracture. Paranasal sinuses and mastoid air cells: Mild scattered paranasal sinus disease. Visualized orbits: Right aphakia IMPRESSION: 1. No evidence for left mastoid air cell effusion. 2. No acute intracranial process. 3. Nonspecific white matter changes, likely secondary to chronic small vessel ischemic disease. [facility], , 04/02/2024 8:52 AM
== END | disposition home or self-care (01) ==
LOC: RADCTMAIN 07:43
PROVIDERS: ATTEND Family Medicine
DX: G44.52 New daily persistent headache (NDPH)
CPT/HCPCS: 70450

== ENCOUNTER → 2024-04-04 | Outpatient (CLI) | payer MEDICARE ==
--- NOTE | 2024-04-04 10:19 | BD ---
EXAMINATION TYPE: Axial Bone Density DATE OF EXAM: 04/04/2024 CLINICAL HISTORY: 73 years old Female. ICD-10 CODE: M81.0 AGE-RELATED OSTEOPOROSIS W/O CURRENT PATHO LO Height: 64" Weight: 181lbs FRAX RISK QUESTIONS: Alcohol (3 or more units per day): No Family History (Parent hip fracture): No Glucocorticoids (More than 3mos): Yes, 1mg per day (Ex: prednisone, prednisolone, methylprednisolone, dexamethasone, and hydrocortisone). History of Fracture in Adulthood: No Secondary Osteoporosis: 1. Type 1 Diabetes: No 2. Hyperthyroidism: No 3. Menopause before 45: No 4. Malnutrition: No 5. Chronic liver disease: No Rheumatoid Arthritis: Yes Current Tobacco Use: RISK FACTORS HISTORY OF: Hip Fracture (Right/Left): No Spine Fracture: No History of Wrist Fracture: No Surgery to Spine/Hip(right/left)/Wrist (right/left): No MEDICATIONS: Thyroid Medications: No Osteoporosis Medications: No EXAM MEASUREMENTS: Bone mineral densitometry was performed using the [employer] System. Bone mineral density as measured about the Lumbar spine is: ----- L1-L4(G/cm2): 1.240 T Score Values are as follows: ----- L1: -0.5 ----- L2: 0.4 ----- L3: 1.3 ----- L4: 0.6 ----- L1-L4: 0.5 Z Score Values are as follows: ----- L1: 0.6 ----- L2: 1.6 ----- L3: 2.5 ----- L4: 1.7 ----- L1-L4: 1.7 Baseline @MPH Bone mineral density about the R hip (g/cm2): 0.890 Bone mineral density about the L hip (g/cm2): 0.876 T Score values are as follows: -----R Neck: -0.9 -----L Neck: -0.9 -----R Total: -0.9 -----L Total: -1.0 Z Score values are as follows: -----R Neck: 0.7 -----L Neck: 0.7 -----R Total: 0.4 -----L Total: 0.3 Baseline @MPH FRAX%s: The graph provided illustrates a 9.1% chance for a major osteoporotic fx and a 1.3% chance fo r the hips probability for fx in 10 years time. IMPRESSION: Normal (Values between +1 and -1 indicate normal bone mass). Consider repeating this study in 5 year s or sooner if there is some new clinical indication. NOTE: T-SCORE=SD OF THE YOUNG ADULT MEAN. [facility], , 04/04/2024 10:17 AM
== END | disposition home or self-care (01) ==
LOC: RADBDWWP 09:38
PROVIDERS: ATTEND Internal Medicine Rheumatology
DX: M81.0 Age-related osteoporosis without current pathological fracture (principal)
CPT/HCPCS: 77080

== ENCOUNTER → 2024-04-04 | Outpatient (CLI) | payer MEDICARE ==
--- NOTE | 2024-04-05 13:55 | MM ---
Reason for Exam: Screening (asymptomatic). Last mammogram was performed 1 year(s) and 2 month(s) ago. Patient History: Menarche at age 13. First Full-Term at age 18. Left ovary removed at age 38. Right ovary removed at age 38. Hysterectomy at age 27. Postmenopausal. Other cancer. Estrogen, ending at age 51. Excisional Biopsy on the Right side. Risk Values: Christin 5 year model risk: 1.7%. NCI Lifetime model risk: 3.7%. Prior Study Comparison: 12/08/2020 Bilateral Screening Mammogram, [facility]. 01/14/2022 Bilateral MG 3D screening mammo w/cad, [facility]. 02/17/2023 Bilateral MG 3D screening mammo w/cad, [facility]. Tissue Density: There are scattered areas of fibroglandular density. Findings: Analyzed By CAD. Right breast: There is no suspicious group of microcalcifications or new suspicious mass. Left breast: There is no suspicious group of microcalcifications or new suspicious mass. Overall Assessment: Negative, BI-RAD 1 Management: Screening Mammogram of both breasts in [address] [facility] will attempt to contact patient to return for supplemental views and ultrasound if indicated. Patient should continue monthly self-breast exams. A clinical breast exam by your physician is recommended on an annual basis. This exam should not preclude additional follow-up of suspicious palpable abnormalities. Note on Christin scores and lifetime risk: 1. A Christin score greater than 3% is considered moderate risk. If this is the case, consider specialist referral to assess eligibility for a risk reducing agent. 2. If overall lifetime risk for the development of breast cancer is 20% or higher, the patient may qualify for future screening with alternating mammogram and breast MRI. [facility], , 04/05/2024 1:52 PM. Electronically signed and approved by: Fermin Fox DO
== END | disposition home or self-care (01) ==
LOC: RADMAMWWP 09:40
PROVIDERS: ATTEND Family Medicine
DX: Z12.31 Encounter for screening mammogram for malignant neoplasm of breast
CPT/HCPCS: 77063; 77067

== ENCOUNTER → 2024-04-06 | Outpatient (CLI) | payer MEDICARE ==
[2024-04-06 11:20] LABS: Basophils # (A) 0.07 X 10*3/uL (0.00-0.10); Basophils % (A) 0.9 %; Eosinophils % (A) 1.3 %; HCT 45.1 % (37.2-46.3); HGB 14.6 g/dL (12.0-15.0); Lymphocytes # (A) 2.36 X 10*3/uL (0.90-5.00); Lymphocytes % (A) 30.5 %; MCH 30.8 pg (27.0-32.0); MCHC 32.4 g/dL (32.0-37.0); MCV 95.1 FL (80.0-97.0); Mean Platelet Volume 10.2 FL (9.5-12.2); Monocytes # (A) 0.77 X 10*3/uL (0.20-1.00); Monocytes % (A) 9.9 %; NRBC Per 100 WBC 0 X 10*3/uL (0.00-0.01); Neutrophils # (A) 4.43 X 10*3/uL (1.80-7.70); Neutrophils % (A) 57.1 %; Platelet Count 223 X 10*3/uL (140-440); RBC 4.74 X 10*6/uL (4.10-5.20); WBC 7.75 X 10*3/uL (4.50-10.00)
[2024-04-06 11:39] LABS: ALT 15 U/L (8-44); Blood Urea Nitrogen 17.5 mg/dL (9.0-27.0); Chol/HDL Ratio 3.98 Ratio; LDL Cholesterol,Calculated 113.1 mg/dL (0.0-131.0)
[2024-04-06 11:40] LABS: AST 21 U/L (13-35)
== END | disposition home or self-care (01) ==
LOC: LABWHC1 07:30
PROVIDERS: ATTEND Internal Medicine Rheumatology
DX: M25.50 Pain in unspecified joint (principal); M06.4 Inflammatory polyarthropathy; E78.79 Other disorders of bile acid and cholesterol metabolism; M45.6 Ankylosing spondylitis lumbar region; E78.89 Other lipoprotein metabolism disorders; Z79.01 Long term (current) use of anticoagulants
CPT/HCPCS: 36415; 80061; 82565; 84450; 84460; 84520; 85025; 86140

== ENCOUNTER → 2024-06-28 | Outpatient (CLI) | payer MEDICARE ==
[2024-06-28 10:32] LABS: Basophils # (A) 0.04 X 10*3/uL (0.00-0.10); Basophils % (A) 0.7 %; Eosinophils # (A) 0.13 X 10*3/uL (0.04-0.35); Eosinophils % (A) 2.2 %; HCT 40.6 % (37.2-46.3); HGB 13.2 g/dL (12.0-15.0); Lymphocytes # (A) 1.82 X 10*3/uL (0.90-5.00); Lymphocytes % (A) 31.5 %; MCH 32.1 pg (27.0-32.0); MCHC 32.5 g/dL (32.0-37.0); MCV 98.8 FL (80.0-97.0); Mean Platelet Volume 10.3 FL (9.5-12.2); Monocytes % (A) 10.4 %; NRBC Per 100 WBC 0 X 10*3/uL (0.00-0.01); Neutrophils # (A) 3.16 X 10*3/uL (1.80-7.70); Neutrophils % (A) 54.7 %; Platelet Count 178 X 10*3/uL (140-440); RBC 4.11 X 10*6/uL (4.10-5.20); RDW 16.1 % (11.5-14.5); WBC 5.78 X 10*3/uL (4.50-10.00)
[2024-06-28 11:04] LABS: % Iron Saturation 35.54 (12.00-45.00); ALT 17 U/L (8-44); AST 23 U/L (13-35); Albumin 3.9 g/dL (3.8-4.9); Alkaline Phosphatase 104 U/L (41-126); BUN/Creat Ratio 15.12 Ratio (12.00-20.00); Blood Urea Nitrogen 12.1 mg/dL (9.0-27.0); Calcium 9.7 mg/dL (8.7-10.3); Carbon Dioxide 28.1 mmol/L (21.6-31.8); Chloride 106 mmol/L (96-109); Globulin 2.3 g/dL (1.6-3.3); Glucose 95 mg/dL (70-110); Iron 118 UG/DL (50-170); Potassium 4.1 mmol/L (3.5-5.5); Sodium 143 mmol/L (135-145); Total Bilirubin 0.4 mg/dL (0.3-1.2); Total Iron Binding Capacity 332 UG/DL (228-460); Total Protein 6.2 g/dL (6.2-8.2)
== END | disposition home or self-care (01) ==
LOC: LABWHC1 06:51
PROVIDERS: ATTEND Physician Assistant
DX: R53.83 Other fatigue (principal); M05.9 Rheumatoid arthritis with rheumatoid factor, unspecified
CPT/HCPCS: 36415; 80053; 82306; 82607; 82728; 82746; 83540; 83550; 83735; 84443; 85025; 86140

== ENCOUNTER → 2024-09-20 | Outpatient (CLI) | payer MEDICARE ==
[2024-09-20 14:46] LABS: HCT 44.2 % (37.2-46.3); HGB 14.5 g/dL (12.0-15.0); MCH 33.7 pg (27.0-32.0); MCHC 32.8 g/dL (32.0-37.0); MCV 102.8 FL (80.0-97.0); Mean Platelet Volume 10.2 FL (9.5-12.2); NRBC Per 100 WBC 0 X 10*3/uL (0.00-0.01); Platelet Count 195 X 10*3/uL (140-440); RDW 13.9 % (11.5-14.5); WBC 6.77 X 10*3/uL (4.50-10.00)
[2024-09-20 14:56] LABS: Blood Urea Nitrogen 14.2 mg/dL (9.0-27.0); Carbon Dioxide 28.9 mmol/L (21.6-31.8); Chloride 106 mmol/L (96-109); Potassium 3.9 mmol/L (3.5-5.5); Sodium 144 mmol/L (135-145)
== END | disposition home or self-care (01) ==
LOC: LABPAT 07:36
PROVIDERS: ATTEND Internal Medicine Interventional Cardiology
DX: Z01.812 Encounter for preprocedural laboratory examination (principal); I70.213 Atherosclerosis of native arteries of extremities with intermittent claudication, bilateral legs; I25.10 Atherosclerotic heart disease of native coronary artery without angina pectoris
CPT/HCPCS: 80051; 82565; 84520; 85027

== ENCOUNTER 2024-09-27 06:49 | Day surgery (SDC) | payer MEDICARE ==
[~2024-09-27 06:49] MED LIST changes: -ALPRAZolam 0.5 MG TAB PO PRN; -ASPIRIN 325 MG TAB PO STA; -ATORVASTATIN 80 MG TAB PO STA; +HEPARIN SODIUM,PORCINE (1 ML) 2,500 UNIT in SODIUM CHLORIDE 0.9% 250 ML IRRIGATION PRN; +HEPARIN SODIUM,PORCINE 10,000 UNIT in SODIUM CHLORIDE 0.9% 1,000 ML IRRIGATION PRN; -SODIUM CHLORIDE 0.9% 1,000 ML in EMPTY BAG 1 BAG IV ONE
[2024-09-27] MEDS: ALPRAZolam 0.5 MG TAB PO PRN (07:39)
[2024-09-27] MEDS: SODIUM CHLORIDE 0.9% 1,000 ML in EMPTY BAG 1 BAG IV SCH ×2 (07:44→19:07)
[2024-09-27] MEDS: ATORVASTATIN 80 MG TAB PO ONE (07:45)
[2024-09-27] MEDS: ASPIRIN 325 MG TAB PO ONE (07:45)
[2024-09-27] MEDS: IV FLUID CONTINUATION 1,000 ML IV ONE ×2 (07:47→17:10)
[2024-09-27] MEDS: LIDOCAINE 1% INJ 10MG/ML (20 ML MDV) SQ ONE (10:04)
[2024-09-27] MEDS: MIDAZOLAM 2 MG/2 ML VIAL IVP ONE ×2 (10:05→10:17)
[2024-09-27] MEDS: VERAPAMIL SYRINGE (5 MG/10 ML) INTRAARTER ONE (10:06)
[2024-09-27] MEDS: HEPARIN SODIUM 1,000 UN/ML (10ML VL) IVP ONE (10:08)
[2024-09-27] MEDS: IOPAMIDOL-370 100ML BTL INJ ONE ×2 (10:28→11:25)
[2024-09-27] MEDS: TICAGRELOR 90 MG TAB PO ONE (11:25)
[2024-09-27] MEDS: NITROGLYCERIN 1000MCG/10ML SYRINGE INTRACORON ONE (11:27)
[2024-09-27] MEDS: niCARdipine Syringe (1,000 mcg/10 mL) INTRACORON ONE (11:28)
[2024-09-27] MEDS ORDERED: ZOLPIDEM 5 MG TAB PO PRN (11:51)
[2024-09-27] MEDS ORDERED: MAG HYDROX/AL HYDROX/SIMETH 30 ML CUP PO PRN (11:51)
[2024-09-27] MEDS ORDERED: RX INFO: IV CONTRAST WAS GIVEN 1 EACH MISC MISCELLANE PRN (11:51)
[2024-09-27] MEDS ORDERED: ATROPINE SULFATE 0.1 MG/ML 10ML SYRINGE IV PRN (11:51)
[2024-09-27] MEDS ORDERED: NITROGLYCERIN SL TABS 0.4 MG TAB SUBLINGUAL PRN (11:51)
--- NOTE | 2024-09-27 11:57 | P.PCN ---
Date of Procedure: 09/27/24 Operative Findings: CARDIAC CATHETERIZATION AND PERCUTANEOUS CORONARY INTERVENTION PERFORMING PHYSICIAN: Armand Narayan MD, [facility] PROCEDURE PERFORMED: 1. Selective right and left coronary angiogram and left heart catheterization and right lower extremity angiogram 2. Successful stenting of mid RCA using 3.0 x 48 mm Xience ARTIS with an excellent angiographic results 3. Adjunctive use of IVUS and lithotripsy balloon 4. Ultrasound-guided access of the right radial artery and ultrasound-guided access of right common femoral artery INDICATION: Symptomatic 73-year-old female patient with abnormal myocardial perfusion imaging stress test and abnormal lower extremities arterial duplex study COMPLICATION: None APPROACH: Right radial artery and right common femoral artery LEVEL OF SEDATION: Moderate with the sedation time of 103 minutes PROCEDURE DESCRIPTION: After obtaining informed consent the patient was brought to the cardiac outlet with right radial artery was cannulated using micropuncture technique under ultrasound guidance a micropuncture wire passed easily then I placed a 6 [place] 11 cm sheath at the right radial artery and give the patient 2 mg of verapamil intra-arterial and 5000's of heparin intravenous. Selective right and left coronary angiogram performed using JR4 and JL 3.5 catheters. The RCA was not well engaged using the JR4 catheter. Left heart catheterization was performed using the JR4 catheter which crossed the aortic valve. After that I attempted engaging the RCA from right radial approach but that was unsuccessful so I have to access the right common femoral artery using micropuncture technique under ultrasound guidance a micropuncture wire passed easily and every 6 [place] sheath at the right common femoral artery. After multiple attempts I was able to engage the RCA using a Sidecar.me catheter. I did wire the RCA from the get go using 2 wires. I did advance microcatheter and injected contrast to prove that I was in the true lumen. After that IVUS was performed and showed diameter around 3 mm. Noncalcified vessel. I did predilatation using 2.0 mm balloon before I did deploy in the mid RCA 3.0 x 48 mm stent which was postdilated using 3.5 mm NC balloon. The old previous stent in the ostial RCA appeared to have in-stent restenosis I did shockwave on it using 4 mm shockwave balloon and 4 mm noncompliant balloon. By the end I did selective right lower extremity angiogram with injection through the sheath. The procedure was completed with no complication SELECTIVE CORONARY ANGIOGRAM: The right coronary artery: Appears to be subtotally occluded in the midportion Left main: Is angiographically normal The left circumflex: Large-caliber vessel with no evidence of high-grade stenosis The left anterior descending artery: Appears to have intermediate to severe disease involving the proximal portion HEMODYNAMICS: LVEDP was about 8 mmHg with no significant gradient across aortic valve Right lower extremity angiogram Showed occluded SFA CONCLUSION: 1. Subtotally occluded RCA. I did PCI of the RCA as described above 2. Intermediate to severe disease involving the proximal LAD need to be addressed by FFR down the line 3. Occluded right SFA 4. Normal left-sided filling pressure POSTPROCEDURE MANAGEMENT: 1. Dual antiplatelet therapy using aspirin and Brilinta for 6 month 2. Aggressive cholesterol control 3. Follow-up with the patient
--- NOTE | 2024-09-27 12:37 | IR ---
EXAMINATION TYPE: IR angio abdominal w runoff Intraoperative/procedural fluoroscopic services were pr ovided. CLINICAL INDICATION:Female, 73 years old with history of RT LEG PAIN, 40.6M/25.4dap, Rt radial TR 12c c rt gr sh sut; , [facility] FINDINGS: Multiple fluoroscopic images for angio abdominal with runoff. Total fluoroscopy time is 40.6 min. DAP: 25.4 Gycm2 Please see the operative/procedural note for further details. [facility], , 09/27/2024 12:35 PM
[2024-09-27] MEDS: hydrALAZINE HCL 20 MG/ML 1 ML VIAL IVP STA (14:23)
[2024-09-27] MEDS: LATANOPROST 0.005% OPHTH DROPS 2.5 ML BTL LEFT EYE SCH (20:53)
[2024-09-27] MEDS: CHOLECALCIFEROL 25 MCG (1000 IU) TABLET PO SCH (21:01)
[2024-09-27] MEDS: METOPROLOL TARTRATE 25 MG TAB PO SCH (21:01)
[2024-09-27] MEDS: TICAGRELOR 90 MG TAB PO SCH (21:01)
[2024-09-28 01:00] VITALS: RESP 16
[2024-09-28 07:41] LABS: African American GFR (CKD) 76 (>60 ml/min/1.73 sqM); Non-African American GFR(CKD) 66 (>60 ml/min/1.73 sqM)
[2024-09-28] MEDS: FUROSEMIDE 20 MG TAB PO SCH (08:48)
[2024-09-28] MEDS: FOLIC ACID 1 MG TAB PO SCH (08:48)
[2024-09-28] MEDS: ATORVASTATIN 10 MG TAB PO SCH (08:48)
[2024-09-28] MEDS ORDERED: ASPIRIN 81 MG PO SCH ×2 (09:00→21:00)
[2024-09-28] MEDS ORDERED: predniSONE 1 MG TAB PO SCH (09:00)
[2024-09-28] MEDS ORDERED: ESTRADIOL 0.1 MG/GM VAGINAL CREAM 42.5 GM TUBE VAGINAL SCH (09:00)
--- NOTE | 2024-09-28 09:21 | P.DS ---
Providers Attending physician: Armand Narayan Consults: 09/27/24 11:51 Consult Physician Routine Consulting Provider: [facility] Consult Reason/Comments: Post Interventional patient Do you want consulting provider notified?: Already Contacted Primary care physician: Ant Gallardo [facility] Course: The patient is a pleasant 73-year-old female patient who underwent yesterday heart catheterization and underwent PCI of the RCA and also right lower extremity angiogram showed occluded right SFA She was seen and evaluated this morning both sites are soft and nontender with no bruises She is going to be discharged home on dual antiplatelet therapy and statin and I will follow-up with the patient next week in the office Plan - Discharge Summary Discharge Rx Participant: No New Discharge Prescriptions: New Ticagrelor [Brilinta] 90 mg PO BID #180 tab Continue Aspirin 81 mg PO DAILY Simvastatin 20 mg PO DAILY predniSONE 1.5 mg PO DAILY metHOTREXate sodium [Methotrexate] 10 mg PO WE Cholecalciferol (Vitamin D3) [Vitamin D3] 2,000 unit PO BID Metoprolol Tartrate [Lopressor] 25 mg PO BID Furosemide [Lasix] 20 mg PO DAILY Albuterol Sulfate [Proair Hfa] 1 - 2 puff INHALATION Q6HR PRN PRN Reason: Shortness Of Breath Estradiol Cream [Estrace Cream 0.01%] 1 gm VAGINAL DAILY Latanoprost [Latanoprost 0.005%] 1 drop LEFT EYE HS Otc Folic Acid 800 mcg PO DAILY Discharge Medication List Aspirin 81 mg PO DAILY 08/25/15 [History] Simvastatin 20 mg PO DAILY 08/25/15 [History] Albuterol Sulfate [Proair Hfa] 1 - 2 puff INHALATION Q6HR PRN 11/20/18 [History] Cholecalciferol (Vitamin D3) [Vitamin D3] 2,000 unit PO BID 11/20/18 [History] Furosemide [Lasix] 20 mg PO DAILY 11/20/18 [History] Metoprolol Tartrate [Lopressor] 25 mg PO BID 11/20/18 [History] metHOTREXate sodium [Methotrexate] 10 mg PO WE 11/20/18 [History] predniSONE 1.5 mg PO DAILY 11/20/18 [History] Estradiol Cream [Estrace Cream 0.01%] 1 gm VAGINAL DAILY 09/26/24 [History] Latanoprost [Latanoprost 0.005%] 1 drop LEFT EYE HS 09/26/24 [History] Otc Folic Acid 800 mcg PO DAILY 09/26/24 [History] Ticagrelor [Brilinta] 90 mg PO BID #180 tab 09/28/24 [Rx] Follow up Appointment(s)/Referral(s): Armand Narayan MD [STAFF PHYSICIAN] - 1 Week (OFFICE WILL CALL PATIENT WITH FOLLOW UP APPOINTMENT DATE/TIME. )
[2024-09-28 09:46] VITALS: BP 122/54; PULSE 74; TEMP 98.7
== END 2024-09-28 10:08 | disposition home or self-care (01) ==
LOC: CATHCVL 06:49 → 3SCARD 11:47 → CATHCVL 09-28 10:08
PROVIDERS: ATTEND Internal Medicine Interventional Cardiology
DX: I25.10 Atherosclerotic heart disease of native coronary artery without angina pectoris (principal); I65.23 Occlusion and stenosis of bilateral carotid arteries; I10 Essential (primary) hypertension; E78.5 Hyperlipidemia, unspecified; F17.210 Nicotine dependence, cigarettes, uncomplicated; Z95.5 Presence of coronary angioplasty implant and graft; Z88.0 Allergy status to penicillin; Z88.2 Allergy status to sulfonamides; Z78.9 Other specified health status; Z79.02 Long term (current) use of antithrombotics/antiplatelets; Z79.82 Long term (current) use of aspirin; Z79.899 Other long term (current) drug therapy
CPT/HCPCS: 99152; 99153; 92978; 93458; 92972; 75710; 82565; C9600; C1769 ×4; C1894 ×2; C1725 ×3; C1887 ×2; C1753; C1751; C1761; J2250; J0360; J2003; J1644; Q9967; J2305; 75630; 93799

== ENCOUNTER 2024-11-21 06:27 | Day surgery (SDC) | payer MEDICARE ==
[2024-11-19 15:52] VITALS: BMI 30.8
[2024-11-21] MEDS: EMPTY BAG 1 BAG with SODIUM CHLORIDE 0.9% 1,000 ML IV SCH (07:30)
[2024-11-21] MEDS: ALPRAZolam 0.5 MG TAB PO STA (07:33)
[2024-11-21 07:52] LABS: Basophils # (A) 0.04 10*3/uL (0.00-0.10); Basophils % (A) 0.3 %; HCT 39.8 % (37.2-46.3); HGB 13.5 g/dL (12.0-15.0); Lymphocytes # (A) 1.09 10*3/uL (0.90-5.00); Lymphocytes % (A) 7.3 %; MCH 32.7 pg (27.0-32.0); MCHC 33.9 g/dL (32.0-37.0); MCV 96.4 fL (80.0-97.0); Mean Platelet Volume 9.9 fL (9.5-12.2); Monocytes # (A) 0.78 10*3/uL (0.20-1.00); Monocytes % (A) 5.2 %; Neutrophils # (A) 12.84 10*3/uL (1.80-7.70); Neutrophils % (A) 86.5 %; Platelet Count 289 10*3/uL (140-440); RBC 4.13 10*6/uL (4.10-5.20); RDW 13.6 % (11.5-14.5); WBC 14.86 10*3/uL (4.50-10.00)
[2024-11-21 08:02] LABS: African American GFR (CKD) >90 (>60 ml/min/1.73 sqM); Anion Gap 8 mmol/L; Blood Urea Nitrogen 16 mg/dL (7-17); Calcium 9.7 mg/dL (8.4-10.2); Carbon Dioxide 27 mmol/L (22-30); Chloride 107 mmol/L (98-107); Glucose 156 mg/dL (74-99); Non-African American GFR(CKD) 83 (>60 ml/min/1.73 sqM); Potassium 3.9 mmol/L (3.5-5.1); Sodium 142 mmol/L (137-145)
[2024-11-21] MEDS: fentaNYL (PF) 50 MCG/ML 2 ML AMP IVP ONE (08:33)
[2024-11-21] MEDS: MIDAZOLAM 2 MG/2 ML VIAL IVP ONE ×2 (08:33→09:58)
[2024-11-21] MEDS: LIDOCAINE 1% INJ 10MG/ML (20 ML MDV) SQ ONE (08:34)
[2024-11-21] MEDS: IV FLUID CONTINUATION 1,000 ML IV ONE (08:35)
[2024-11-21] MEDS: HEPARIN SODIUM 1,000 UN/ML (10ML VL) IVP ONE (08:43)
[2024-11-21] MEDS: NITROGLYCERIN 1000MCG/10ML SYRINGE INTRACORON ONE (09:01)
[2024-11-21] MEDS: CLOPIDOGREL 75 MG TAB PO ONE (09:06)
[2024-11-21] MEDS: niCARdipine Syringe (1,000 mcg/10 mL) INTRAARTER ONE (10:19)
[2024-11-21] MEDS: IOPAMIDOL-370 100ML BTL INJ ONE (10:19)
[2024-11-21] MEDS: NITROGLYCERIN 1000MCG/10ML SYRINGE INTRAARTER ONE (10:19)
[2024-11-21] MEDS ORDERED: ACETAMINOPHEN TAB 500 MG TAB PO PRN (10:40)
[2024-11-21] MEDS ORDERED: ATROPINE SULFATE 0.1 MG/ML 10ML SYRINGE IV PRN (10:41)
[2024-11-21] MEDS ORDERED: ZOLPIDEM 5 MG TAB PO PRN (10:41)
[2024-11-21] MEDS ORDERED: RX INFO: IV CONTRAST WAS GIVEN 1 EACH MISC MISCELLANE PRN (10:41)
[2024-11-21] MEDS ORDERED: NITROGLYCERIN SL TABS 0.4 MG TAB SUBLINGUAL PRN (10:41)
[2024-11-21] MEDS ORDERED: MAG HYDROX/AL HYDROX/SIMETH 30 ML CUP PO PRN (10:41)
--- NOTE | 2024-11-21 10:44 | P.PCN ---
Date of Procedure: 11/21/24 Operative Findings: PERCUTANEOUS CORONARY INTERVENTION Performing physician Armand Narayan M.D. Procedure Performed: 1. Successful stenting of the mid LAD using 3.5 x 33 mm Xience drug-eluting stent with an excellent angiographic results. 2. Adjunctive use of IVUS and IFR Indication: Symptomatic 74-year-old female patient Approach: Left common femoral artery Complications: None Level of Sedation: Moderate with a sedation length of 23 minutes Procedure Discussion: After obtaining informed consent the patient was brought to the cardiac Cis Coordinator with the left common femoral artery was cannulated using micropuncture technique under ultrasound guidance a micropuncture wire passed easily then I placed a 6 [place] 11 cm sheath at the left common femoral artery with anticoagulation was initiated using heparin. The patient was already on Plavix. After zeroing the Dobler wire and equalized in between the Dobler wire and guiding catheter which was JL 3.5 guiding catheter the left main was engaged and the LAD was wired with IFR came to be at 0.83. I did IVUS which showed a diameter between 3 to 3.5 mm. Predilatation was performed using 3 mm balloon before I deployed 3.5 x 33 mm stent which was postdilated using 4 mm NC balloon was final angiogram and IVUS showed good results and the procedure was completed with no complication Postprocedure Management: 1. Dual antiplatelet therapy using aspirin and Plavix for at least 6 months 2. Risk factors modification 3. Follow-up with the patient
--- NOTE | 2024-11-21 10:47 | P.PCN ---
Date of Procedure: 11/21/24 Operative Findings: PERCUTANEOUS PERIPHERAL INTERVENTION Performing physician Armand Narayan M.D. Procedure performed 1. Successful angioplasty and stenting of the right SFA 2. Adjunctive use of atherectomy and IVUS and gradient measurement 3. Right lower extremity angiogram and left common femoral artery angiogram 4. Ultrasound-guided access of the left common femoral artery Indication Symptomatic 74-year-old female patient with known occluded right SFA Approach Left common femoral artery Complications None Level of sedation Moderate with a sedation time of 80 minutes Procedure description After obtaining informed consent the patient was brought to the cardiac [facility]. These refer to Access description was performed during PCI was performed earlier today. Anticoagulation continued using heparin. I did initially an angiogram because I had some difficulties with the wire going to the abdominal aorta and that showed intermediate lesion involving the abdominal aorta infrarenally. Gradient was checked and came in to be nonsignificant. Subsequently I did go up and over from the left common femoral artery to the right profunda using Omni Flush catheter with a stiff Glidewire and subsequently the sheath was advanced over the wire and the catheter all the way to the right common femoral artery. Right lower extremity angiogram was performed. I did cross the [employer] using 018 wire. IVUS was performed and showed a soft noncalcified lesion. Predilatation was performed using 5 mm balloon before I deployed distally 6.0 x 140 mm stent which was postdilated using 5 mm balloon and did that balloon angioplasty of the mid and proximal right SFA using DCB. Gradient measurement of the right iliac was performed and came to be at 22 mmHg I decided to treat the patient medically. By the end I did exchange my long sheath into short sheath using a 035 stiff Glidewire before I did selective left common femoral artery angiogram and the procedure was completed with no complication Postprocedure management 1. Dual antiplatelet therapy 2. Aggressive cholesterol control 3. Risk factors modification 4. Follow-up with the patient
[2024-11-21] MEDS: hydrALAZINE HCL 20 MG/ML 1 ML VIAL IVP STA (12:02)
--- NOTE | 2024-11-21 12:42 | IR ---
EXAMINATION TYPE: IR stent intravas non coronary DATE OF EXAM: 11/21/2024 FLUOROSCOPY 599 images are submitted. Total DAP: 68.1 Gycm2. Total fluoroscopy time: 30.1 minutes. [facility], , 11/21/2024 12:40 PM
[2024-11-21] MEDS: SODIUM CHLORIDE 0.9% 1,000 ML in EMPTY BAG 1 BAG IV SCH (14:42)
[2024-11-21] MEDS: LATANOPROST 0.005% OPHTH DROPS 2.5 ML BTL LEFT EYE SCH (20:43)
[2024-11-21] MEDS: METOPROLOL TARTRATE 25 MG TAB PO SCH (20:43)
[2024-11-21] MEDS: CHOLECALCIFEROL 25 MCG (1000 IU) TABLET PO SCH (20:43)
[2024-11-22 07:26] LABS: African American GFR (CKD) 77 (>60 ml/min/1.73 sqM); Non-African American GFR(CKD) 67 (>60 ml/min/1.73 sqM)
[2024-11-22 07:27] VITALS: BP 152/75; PULSE 78; RESP 18; TEMP 98.5
[2024-11-22] MEDS: predniSONE 1 MG TAB PO SCH (08:54)
[2024-11-22] MEDS: CLOPIDOGREL 75 MG TAB PO SCH (08:54)
[2024-11-22] MEDS: ATORVASTATIN 10 MG TAB PO SCH (08:54)
[2024-11-22] MEDS: FUROSEMIDE 20 MG TAB PO SCH (08:54)
[2024-11-22] MEDS: FOLIC ACID 1 MG TAB PO SCH (08:54)
[2024-11-22] MEDS: ASPIRIN 81 MG PO SCH (08:54)
[2024-11-22] MEDS: ESTRADIOL 0.1 MG/GM VAGINAL CREAM 42.5 GM TUBE VAGINAL SCH (08:56)
== END 2024-11-22 10:32 | disposition home or self-care (01) ==
LOC: CATHCVL 06:27 → 6NMEDSUR 11:10 → CATHCVL 11-22 10:32
PROVIDERS: ATTEND Internal Medicine Interventional Cardiology
DX: I65.23 Occlusion and stenosis of bilateral carotid arteries (principal); I73.9 Peripheral vascular disease, unspecified; I25.10 Atherosclerotic heart disease of native coronary artery without angina pectoris; I10 Essential (primary) hypertension; E78.5 Hyperlipidemia, unspecified; Z72.0 Tobacco use; Z88.0 Allergy status to penicillin; Z88.1 Allergy status to other antibiotic agents; Z88.2 Allergy status to sulfonamides; Z79.82 Long term (current) use of aspirin; Z79.02 Long term (current) use of antithrombotics/antiplatelets; Z79.899 Other long term (current) drug therapy
CPT/HCPCS: 92978; 37227; 93799; 75710; 80048; 82565; 85025; 99152; 99153; C9600; C1894 ×2; C1887; C1769 ×4; C1725 ×3; C1714; C1753; C1874 ×2; C2623; J2250; J0360; J2003; J3010; J1644; J7512; Q9967; J2305

== ENCOUNTER → 2024-12-26 | Outpatient (CLI) | payer MEDICARE ==
[2024-12-26 10:25] LABS: Basophils # (A) 0.06 X 10*3/uL (0.00-0.10); Basophils % (A) 0.9 %; Eosinophils # (A) 0.14 X 10*3/uL (0.04-0.35); Eosinophils % (A) 2.1 %; HCT 43.5 % (37.2-46.3); HGB 13.7 g/dL (12.0-15.0); Lymphocytes # (A) 1.93 X 10*3/uL (0.90-5.00); Lymphocytes % (A) 29.5 %; MCH 30.5 pg (27.0-32.0); MCHC 31.5 g/dL (32.0-37.0); MCV 96.9 FL (80.0-97.0); Mean Platelet Volume 9.9 FL (9.5-12.2); Monocytes # (A) 0.59 X 10*3/uL (0.20-1.00); NRBC Per 100 WBC 0 X 10*3/uL (0.00-0.01); Neutrophils # (A) 3.81 X 10*3/uL (1.80-7.70); Neutrophils % (A) 58.2 %; Platelet Count 206 X 10*3/uL (140-440); RBC 4.49 X 10*6/uL (4.10-5.20); RDW 13.6 % (11.5-14.5); WBC 6.55 X 10*3/uL (4.50-10.00)
[2024-12-26 10:48] LABS: ALT 18 U/L (8-44); AST 22 U/L (13-35); Blood Urea Nitrogen 13.4 mg/dL (9.0-27.0); Chol/HDL Ratio 3.94 Ratio; LDL Cholesterol,Calculated 109.3 mg/dL (0.0-131.0); T4, Free (Free Thyroxine) 1.04 ng/dL (0.80-1.80)
[2024-12-26 12:56] LABS: Erythrocyte Sedimentation Rate 22 mm/Hr (0-30)
[2024-12-26 15:21] LABS: Appearance,Urine Clear (Clear); Bilirubin,Urine Negative (Negative); Blood,Urine Negative (Negative); Color,Urine Yellow (Yellow); Ketones,Urine Negative (Negative); Nitrite,Urine Negative (Negative); Specific Gravity,Urine 1.019 (1.001-1.030); Urobilinogen,Urine 0.2 E.U./DL
[2024-12-26 15:47] LABS: Bacteria,Urine None Seen (None Seen); Calcium Oxalate Crystals,Urine Present (None Seen)
== END | disposition home or self-care (01) ==
LOC: LABWHC1 06:55
PROVIDERS: ATTEND Internal Medicine Rheumatology
DX: M05.9 Rheumatoid arthritis with rheumatoid factor, unspecified (principal); M15.9 Polyosteoarthritis, unspecified; Z71.85 Encounter for immunization safety counseling; Z79.61 Long term (current) use of immunomodulator
CPT/HCPCS: 36415; 80061; 81001; 82306; 82565; 84439; 84443; 84450; 84460; 84520; 85025; 85652; 86140